=== PATIENT | female | born 1950 | race Caucasian/White ===

== ENCOUNTER → 2018-01-16 09:19 | Outpatient (CLI) | payer MEDICARE, OTHER, SELFPAY ==
[2018-01-16 10:39] LABS: Alanine Aminotransferase 48 IU/L (9-52); Albumin 4.2 g/dL (3.5-5.0); Albumin Globulin Ratio 1.5 (1.0-2.8); Alkaline Phosphatase 61 U/L (38-126); Aspartate Aminotransferase 28 IU/L (14-36); BUN Creatinine Ratio 25.7 (6-22); Bilirubin Total 0.6 mg/dL (0.2-1.3); Calcium 9.4 mg/dL (8.4-10.2); Estimated Glomerular Filt Rate > 60.0 mL/min (>60); Globulin 2.8 g/dL (1.7-4.1); Glucose 138 mg/dL (80-110); HEMOLYSIS < 15 (0-50); Potassium 4.4 mmol/L (3.4-5.1); Sodium 142 mmol/L (137-145)
[2018-01-16 10:41] LABS: Microalbumin Urine Random 1.2 mg/dL (0-1.6)
[2018-01-16 10:43] LABS: Digoxin 0.8 ng/mL (0.8-2.0)
[2018-01-16 11:06] LABS: Thyroid Stimulating Hormone 0.09 uIU/mL (0.47-4.68)
== END ==
PROVIDERS: PCP Internal Medicine; Visit Provider Internal Medicine
DX: E11.9 Type 2 diabetes mellitus without complications (principal); I48.0 Paroxysmal atrial fibrillation; E78.00 Pure hypercholesterolemia, unspecified; E03.9 Hypothyroidism, unspecified
CPT/HCPCS: 36415; 80053; 80162; 82043; 82570; 83036; 84443

== ENCOUNTER → 2018-05-17 09:58 | Outpatient (CLI) | payer MEDICARE, OTHER, SELFPAY ==
[2018-05-17 11:14] LABS: BUN Creatinine Ratio 31.3 (6-22); Blood Urea Nitrogen 25 mg/dL (7-17); Calcium 10.1 mg/dL (8.4-10.2); Carbon Dioxide 30 mmol/L (22-32); Chloride 102 mmol/L (98-107); Estimated Glomerular Filt Rate > 60.0 mL/min (>60); Glucose 129 mg/dL (80-110); HEMOLYSIS < 15 (0-50); Potassium 4.7 mmol/L (3.4-5.1); Sodium 143 mmol/L (137-145)
[2018-05-17 11:47] LABS: Thyroid Stimulating Hormone 0.21 uIU/mL (0.47-4.68)
== END ==
PROVIDERS: PCP Internal Medicine; Visit Provider Student in an Organized Health Care Education/Training Program
DX: E11.9 Type 2 diabetes mellitus without complications (principal); E03.9 Hypothyroidism, unspecified
CPT/HCPCS: 36415; 80048; 83036; 84443

== ENCOUNTER → 2018-05-24 11:53 | Outpatient (CLI) | payer MEDICARE, OTHER, SELFPAY ==
[2018-05-24 12:01] LABS: RBC Urine None Seen (0-5/HPF)
[2018-05-24 12:13] LABS: Appearance Urine UA CLEAR; Bilirubin Urine UA NEGATIVE (NEGATIVE); Color Urine UA YELLOW; Glucose Urine UA 3+ g/dL (Normal); Ketones Urine UA NEGATIVE (NEGATIVE); Leukocyte Esterase Urine UA TRACE (NEGATIVE); Nitrite Urine UA Negative (Negative); Occult Blood Urine UA TRACE-INTACT (Negative); Protein Urine UA NEGATIVE (Negative); Specific Gravity Urine UA 1.015 (1.000-1.035); Urobilinogen Urine UA 0.2 E.U./dL (0.2)
[2018-05-24 14:52] LABS: Bacteria Urine Few (2-10); Culture Indicated Urine Specimen Cultured; Squamous Epithelial Cell Urine 0-1 /HPF; WBC Urine 5-10/HPF (0-5/HPF)
== END ==
PROVIDERS: PCP Internal Medicine; Visit Provider Family Medicine
DX: R30.0 Dysuria (principal)
CPT/HCPCS: 81001; 87077; 87086; 87186

== ENCOUNTER → 2018-06-23 11:09 | Outpatient (CLI) | payer MEDICARE, OTHER, SELFPAY ==
[2018-06-23 11:20] LABS: Bacteria Urine None Seen; RBC Urine None Seen (0-5/HPF); WBC Urine None Seen (0-5/HPF)
[2018-06-23 12:10] LABS: Appearance Urine UA CLEAR; Bilirubin Urine UA NEGATIVE (NEGATIVE); Color Urine UA YELLOW; Glucose Urine UA 3+ g/dL (Normal); Ketones Urine UA NEGATIVE (NEGATIVE); Leukocyte Esterase Urine UA NEGATIVE (NEGATIVE); Nitrite Urine UA NEGATIVE (Negative); Occult Blood Urine UA NEGATIVE (Negative); Protein Urine UA NEGATIVE (Negative); Specific Gravity Urine UA 1.015 (1.000-1.035); Urobilinogen Urine UA 0.2 E.U./dL (0.2)
[2018-06-23 12:16] LABS: Culture Indicated Urine Cult Not Indicated; Urine Comments Microscopic Normal
== END ==
PROVIDERS: PCP Internal Medicine; Visit Provider Family Medicine
DX: R30.0 Dysuria (principal)
CPT/HCPCS: 81001

== ENCOUNTER → 2018-07-11 10:02 | Outpatient (CLI) | payer MEDICARE, OTHER, SELFPAY | PROVIDERS: PCP Internal Medicine; Visit Provider Internal Medicine | DX: Z78.0 Asymptomatic menopausal state (principal); E07.9 Disorder of thyroid, unspecified; E11.9 Type 2 diabetes mellitus without complications; Z82.62 Family history of osteoporosis | CPT/HCPCS: 77080 ==

== ENCOUNTER 2018-08-23 07:40 | Emergency (ER) | payer MEDICARE, OTHER, SELFPAY ==
[2018-08-23 07:40] VITALS: BP 164/64; PULSE 73; RESP 14; TEMP 36.6; O2SAT 100
--- NOTE | 2018-08-23 07:44 | ED.ABDPAIN ---
HPI - Abdominal Pain General Chief Complaint: Abdominal Pain Stated Complaint: nausea left side pain x1 day Time Seen by Provider: 08/23/18 07:42 Source: patient Mode of arrival: ambulatory Limitations: no limitations History of Present Illness HPI narrative: 67-year-old female here for evaluation of left-sided abdominal pain. Patient states that it started sometime within the past 12 hr. Has had some significant nausea but no vomiting. States she had 4 bowel movements yesterday and 1 or 2 this morning. They were nonbloody. Non black appearing. Did not change her abdominal pain. Is on daily Macrobid for prevention of chronic urinary tract infections. She states she is not having any urine symptoms currently. No vaginal bleeding or vaginal discharge. No prior abdominal surgeries. Related Data Home Medications Medication Instructions Recorded Confirmed ASPIRIN (#ASPIR 81) 162 mg PO QDAY #0 03/25/12 08/04/18 CA PANTOTHENATE/FOLIC ACID/VIT 1 tab PO QDAY #0 03/25/12 08/04/18 (MULTIVITAMIN) Fish Oil (#FISH OIL) 1 iu PO Q DAY #0 03/25/12 08/04/18 LEVOTHYROXINE SODIUM (SYNTHROID) 0.125 mg PO QDAY #0 03/25/12 08/04/18 TROSPIUM CHLORIDE (SANCTURA~) 60 mg PO QDAY #0 03/25/12 08/04/18 WHEAT DEXTRIN (#BENEFIBER) 2 tsp PO BID #0 03/25/12 08/04/18 [VITAMIN D] Q DAY #0 03/25/12 08/04/18 [VITAMIN E] Q DAY #0 03/25/12 08/04/18 digoxin [Lanoxin] 0.25 mg PO QDAY #0 03/25/12 08/04/18 metformin [Glucophage] 500 mg PO TIDCC #0 03/25/12 08/04/18 metoprolol succinate [Toprol XL] 50 mg PO QDAY #0 03/25/12 08/04/18 simvastatin 20 mg PO HS #0 03/25/12 spironolactone 12.5 mg PO QDAY #0 03/25/12 08/04/18 [CMP BIEST/PROG/TEST] #0 11/11/17 08/04/18 Previous Rx's Medication Instructions Recorded estradiol 2 mg (7.5 mcg/24 hour) 1 vaginalrin VAG Q 3 MONTHS #1 08/04/18 vaginal ring vaginalrin nitrofurantoin macrocrystal 50 mg 50 mg PO BEDTIME #90 cap 08/04/18 capsule [BIEST1%PRO7.5%TEST2%] See Label Instructions .ROUTE 08/22/18 .COMPLEX #60 gram hydrocodone-acetaminophen [[place]] 1 tab PO Q4-6H PRN #7 tab 08/23/18 ondansetron 4 mg PO Q6-8H PRN #7 tab 08/23/18 Allergies Allergy/AdvReac Type Severity Reaction Status Date / Time No Known Drug Allergies Allergy Unverified 08/04/18 08:49 Review of Systems Constitutional Denies fever(s) and Denies headache(s) ENT Ears, Nose, Mouth, and Throat: Denies headache(s) Cardiovascular Denies chest pain and Denies dyspnea Respiratory Denies dyspnea Gastrointestinal Gastrointestinal: Reports abdominal pain, Denies melena, Denies change in stool character, Denies constipation, Denies diarrhea, Reports nausea and Denies vomiting Genitourinary Denies dysuria and Denies vaginal discharge Musculoskeletal Denies myalgias and Denies arthralgias Integumentary/Breasts Denies rash Neurologic Denies headache(s) Hematologic/Lymphatic Denies easy bleeding and Denies easy bruising [facility] Social History Smoking Status: Never smoker Exam Initial Vital Signs Initial Vital Signs: Vital Signs Temperature 98 F 08/23/18 07:40 Pulse Rate 73 08/23/18 07:40 Respiratory Rate 14 08/23/18 07:40 Blood Pressure 164/64 H 08/23/18 07:40 Pulse Oximetry 100 08/23/18 07:40 Const General: cooperative, healthy appearing, well developed, well groomed and No acute distress Orientation: alert, awake and oriented x3 HENMT Head: normal to inspection and normocephalic Resp Effort & Inspection: normal respiratory effort Auscultation: clear to auscultation bilaterally Cardio Rate: regular rate Rhythm: regular rhythm Pulses: radial pulses present GI Inspection: non-distended Palpation: soft, No firm, No guarding, No rigid and tender (Left side abdomen) Back/Spine/Pelvis Back: No CVA tenderness Skin Lesions: no lesions Rashes: no rashes Neuro General: alert, awake and oriented x3 Extrem General: normal to inspection and capillary refill normal Psych Appearance: grossly normal and well kempt Course Orders Ordered: ED Orders 08/23/18 07:45 Urine Microscopic Stat 08/23/18 07:57 CT abdomen pelvis w con Stat 08/23/18 08:00 Complete Blood Count AUTO DIFF Stat Comprehensive Metabolic Panel Stat Lipase Stat Discontinued Medications Sodium Chloride (Normal Saline 0.9%) 1,000 mls @ 1,000 mls/hr IV BOLUS ONE Stop: 08/23/18 08:55 Last Admin: 08/23/18 08:17 Dose: 1,000 mls/hr Ondansetron HCl (Zofran) 4 mg IV NOW ONE Stop: 08/23/18 07:57 Last Admin: 08/23/18 08:17 Dose: 4 mg Vital Signs - 8 hr 08/23/18 07:40 08/23/18 08:48 Temperature 98 F Pulse Rate 73 72 Respiratory Rate 14 16 Blood Pressure 164/64 H Blood Pressure [Right Arm] 123/62 Pulse Oximetry 100 100 MDM - Abdominal Pain Lab Data Attestation: I reviewed the patient's lab results. Result diagrams: 08/23/18 08:00 08/23/18 08:00 Lab Results 08/23/18 08/23/18 08/23/18 Range/Units 07:45 08:00 08:00 WBC 12.1 H (4.5-11.0) X10^3/uL RBC 4.44 (4.0-5.2) X10^6/uL Hgb 13.7 (12.0-16.0) g/dL Hct 41.3 (36-46) % MCV 93.0 (80-100) fL MCH 30.8 (26-34) PG MCHC 33.1 (30-36) % RDW 13.5 (11.6-14.8) % Plt Count 258 (150-400) X10^3/uL Neut % (Auto) 79.1 H (50-75) % Lymph % (Auto) 13.5 L (25-40) % [place] % (Auto) 5.6 (3-14) % Eos % (Auto) 1.3 L (2-4) % Baso % (Auto) 0.5 (0-2) % Neut # (Auto) 9600 H (7650-7940) /uL Sodium 141 (137-145) mmol/L Potassium 4.5 (3.4-5.1) mmol/L Chloride 104 (98-107) mmol/L Carbon Dioxide 27 (22-32) mmol/L BUN 23 H (7-17) mg/dL Creatinine 0.70 (0.52-1.04) mg/dL Estimated GFR > 60.0 (>60) mL/min BUN/Creatinine Ratio 32.9 H (6-22) Glucose 187 H (80-110) mg/dL Calcium 9.6 (8.4-10.2) mg/dL Total Bilirubin 0.5 (0.2-1.3) mg/dL AST 26 (14-36) IU/L ALT 35 (9-52) IU/L Alkaline Phosphatase 71 (38-126) U/L Total Protein 7.0 (6.3-8.2) g/dL Albumin 4.3 (3.5-5.0) g/dL Globulin 2.7 (1.7-4.1) g/dL Albumin/Globulin Ratio 1.6 (1.0-2.8) Lipase (23-300) U/L Urine RBC 10-30/hpf H (0-5/HPF) Urine WBC 1-5/hpf (0-5/HPF) Ur Squamous Epith Cells 0-1 /hpf Urine Bacteria None seen (None) Ur Culture Indicated? Cult not indicated Micro UA Comment Not Reportable 08/23/18 Range/Units 08:00 WBC (4.5-11.0) X10^3/uL RBC (4.0-5.2) X10^6/uL Hgb (12.0-16.0) g/dL Hct (36-46) % MCV (80-100) fL MCH (26-34) PG MCHC (30-36) % RDW (11.6-14.8) % Plt Count (150-400) X10^3/uL Neut % (Auto) (50-75) % Lymph % (Auto) (25-40) % [place] % (Auto) (3-14) % Eos % (Auto) (2-4) % Baso % (Auto) (0-2) % Neut # (Auto) (5546-7671) /uL Sodium (137-145) mmol/L Potassium (3.4-5.1) mmol/L Chloride (98-107) mmol/L Carbon Dioxide (22-32) mmol/L BUN (7-17) mg/dL Creatinine (0.52-1.04) mg/dL Estimated GFR (>60) mL/min BUN/Creatinine Ratio (6-22) Glucose (80-110) mg/dL Calcium (8.4-10.2) mg/dL Total Bilirubin (0.2-1.3) mg/dL AST (14-36) IU/L ALT (9-52) IU/L Alkaline Phosphatase (38-126) U/L Total Protein (6.3-8.2) g/dL Albumin (3.5-5.0) g/dL Globulin (1.7-4.1) g/dL Albumin/Globulin Ratio (1.0-2.8) Lipase 65 (23-300) U/L Urine RBC (0-5/HPF) Urine WBC (0-5/HPF) Ur Squamous Epith Cells Urine Bacteria (None) Ur Culture Indicated? Micro UA Comment Point of care testing: Urine Dip Bedside Urine Glucose 1000 mg/dl Bedside Urine Bilirubin - Negative Bedside Urine Ketone - Negative Urine Specific [place] 1.025 Bedside Urine Occult Blood ++ Bedside Urine pH 6.0 Bedside Urine Protein +/- 15 Bedside Urine Urobilinogen - Negative Bedside Urine Nitrite - Negative Bedside Urine Leukocytes - Negative Esterase Imaging Data CT scan - abdomen: Radiologist's impression: PROCEDURE: CT ABDOMEN PELVIS W CON INDICATIONS: Left-sided abdominal pain TECHNIQUE: After the administration of intravenous contrast, 5 mm thick sections acquired from the diaphragm to the symphysis. 5 mm coronal and sagittal reformats were acquired. For radiation dose reduction, the following was used: automated exposure control, adjustment of mA and/or kV according to patient size. COMPARISON: None. FINDINGS: Image quality: Excellent. ABDOMEN: Lung bases: Lung bases are clear. Heart size is normal. Solid organs: Liver is normal in size and enhancement. Gallbladder appears normal. Biliary system is non dilated. Pancreas enhances normally. Spleen is normal in size and enhancement. No adrenal nodules. Kidneys demonstrate normal size and enhancement, without right-sided hydronephrosis. There is left-sided hydronephrosis secondary to a 8 x 10 mm calculus at the ureteropelvic junction with radiodensity 1207 Hounsfield units. Peritoneum and bowel: Bowel loops demonstrate normal wall thickness and caliber. No free fluid or air. Nodes and vessels: No retroperitoneal or mesenteric adenopathy by size criteria. Aorta and inferior vena cava are normal in size. Miscellaneous: No ventral hernias. PELVIS: Genitourinary: Bladder wall thickness is normal. Pessary is incidentally noted at the low midline of the pelvis. Miscellaneous: No inguinal hernias or adenopathy. Bones: No suspicious bony lesions. No vertebral body compression fractures. IMPRESSION: Mild hypoperfusion to the cortex of the left kidney is present secondary to a large dense calculus impacted at the ureteropelvic junction producing moderate left hydronephrosis. The calculus measures 8 x 10 mm, and measures slightly over 1200 Hounsfield units in radiodensity. Pessary in place. Dictated by: Uche Laws M.D. on 08/23/2018 at 8:44 MDM Narrative Medical decision making narrative: Patient is nontoxic appearing. Has a benign abdominal exam. Does show a 1 cm left-sided ureteral stone at the UPJ. Creatinine is unremarkable. No signs of urinary tract infection. She is currently on a daily Macrobid for prevention of urinary tract infections. I do not feel that a emergent consult to Urology as needed despite the size of the stone. Send home with a prescription for pain medication and also nausea medication. Informed her that if her symptoms worsen that she needs return to the emergency department for further evaluation. Patient expressed understanding and agreement this plan. Discharge Plan Departure Patient Disposition: Home Clinical Impression: Renal colic on left side Instructions: DI for Kidney Stones Activity Restrictions/Additional Instructions: I recommend you take the medications that you were given a prescription for as needed. Return to the emergency department for any new symptoms, worsening pain, fevers, inability to urinate, or any other concerning symptoms. Call your primary care doctor for a follow-up. Prescriptions: New hydrocodone-acetaminophen [[place]] 5-325 mg tablet 1 tab PO Q4-6H PRN (Reason: pain) Qty: 7 RF: 0 ondansetron 4 mg tablet,disintegrating 4 mg PO Q6-8H PRN (Reason: nausea and vomiting) Qty: 7 RF: 0 No Action ASPIRIN (#ASPIR 81) 162 mg PO QDAY Qty: 0 RF: 0 digoxin [Lanoxin] 250 MCG tablet 0.25 mg PO QDAY Qty: 0 RF: 0 LEVOTHYROXINE SODIUM (SYNTHROID) 0.125 mg PO QDAY Qty: 0 RF: 0 metformin [Glucophage] 500 MG tablet 500 mg PO TIDCC Qty: 0 RF: 0 TROSPIUM CHLORIDE (SANCTURA~) 60 mg PO QDAY Qty: 0 RF: 0 spironolactone 25 MG tablet 12.5 mg PO QDAY Qty: 0 RF: 0 simvastatin 20 MG tablet 20 mg PO HS Qty: 0 RF: 0 metoprolol succinate [Toprol XL] 50 MG tablet extended release 24 hr 50 mg PO QDAY Qty: 0 RF: 0 CA PANTOTHENATE/FOLIC ACID/VIT (MULTIVITAMIN) 1 tab PO QDAY Qty: 0 RF: 0 Fish Oil (#FISH OIL) 1 iu PO Q DAY Qty: 0 RF: 0 WHEAT DEXTRIN (#BENEFIBER) 2 tsp PO BID Qty: 0 RF: 0 [VITAMIN D] Q DAY Qty: 0 RF: 0 [VITAMIN E] Q DAY Qty: 0 RF: 0 [CMP BIEST/PROG/TEST] Qty: 0 RF: 0 [BIEST1%PRO7.5%TEST2%] See Label Instructions .ROUTE .COMPLEX Qty: 60 RF: 2 estradiol [Estring] 2 mg (7.5 mcg /24 hour) ring 1 vaginalrin VAG Q 3 MONTHS Qty: 1 RF: 6 nitrofurantoin macrocrystal 50 mg capsule 50 mg PO BEDTIME Qty: 90 RF: 0
[2018-08-23 07:57] LABS: Bacteria Urine None Seen
--- NOTE | 2018-08-23 07:57 | DI.CT.S_ITS ---
PROCEDURE: CT ABDOMEN PELVIS W CON INDICATIONS: Left-sided abdominal pain TECHNIQUE: After the administration of intravenous contrast, 5 mm thick sections acquired from the diaphragm to the symphysis. 5 mm coronal and sagittal reformats were acquired. For radiation dose reduction, the following was used: automated exposure control, adjustment of mA and/or kV according to patient size. COMPARISON: None. FINDINGS: Image quality: Excellent. ABDOMEN: Lung bases: Lung bases are clear. Heart size is normal. Solid organs: Liver is normal in size and enhancement. Gallbladder appears normal. Biliary system is non dilated. Pancreas enhances normally. Spleen is normal in size and enhancement. No adrenal nodules. Kidneys demonstrate normal size and enhancement, without right-sided hydronephrosis. There is left-sided hydronephrosis secondary to a 8 x 10 mm calculus at the ureteropelvic junction with radiodensity 1207 Hounsfield units. Peritoneum and bowel: Bowel loops demonstrate normal wall thickness and caliber. No free fluid or air. Nodes and vessels: No retroperitoneal or mesenteric adenopathy by size criteria. Aorta and inferior vena cava are normal in size. Miscellaneous: No ventral hernias. PELVIS: Genitourinary: Bladder wall thickness is normal. Pessary is incidentally noted at the low midline of the pelvis. Miscellaneous: No inguinal hernias or adenopathy. Bones: No suspicious bony lesions. No vertebral body compression fractures. IMPRESSION: Mild hypoperfusion to the cortex of the left kidney is present secondary to a large dense calculus impacted at the ureteropelvic junction producing moderate left hydronephrosis. The calculus measures 8 x 10 mm, and measures slightly over 1200 Hounsfield units in radiodensity. Pessary in place. Dictated by: Uche Laws M.D. on 08/23/2018 at 8:44 Approved by: Uche Laws M.D. on 08/23/2018 at 8:47
[2018-08-23 08:07] LABS: Add Manual Diff / Slide Review NO; Basophils Percent Auto 0.5 % (0-2); Eosinophils Percent Auto 1.3 % (2-4); Hematocrit 41.3 % (36-46); Hemoglobin 13.7 g/dL (12.0-16.0); Lymphocytes Percent Auto 13.5 % (25-40); Mean Corpuscular HGB Conc 33.1 % (30-36); Mean Corpuscular Hemoglobin 30.8 PG (26-34); Monocytes Percent Auto 5.6 % (3-14); Neutrophils Absolute Auto 9600 /uL (1500-7000); Neutrophils Percent Auto 79.1 % (50-75); Platelet Count 258 X10^3/uL (150-400); Red Blood Cell Count 4.44 X10^6/uL (4.0-5.2); Red Cell Distribution Width 13.5 % (11.6-14.8); White Blood Cell Count 12.1 X10^3/uL (4.5-11.0)
[2018-08-23 08:14] LABS: RBC Urine 10-30/HPF (0-5/HPF); Squamous Epithelial Cell Urine 0-1 /HPF; WBC Urine 1-5/HPF (0-5/HPF)
[2018-08-23 08:15] LABS: Culture Indicated Urine Cult Not Indicated
[2018-08-23 08:16] LABS: Alanine Aminotransferase 35 IU/L (9-52); Albumin 4.3 g/dL (3.5-5.0); Albumin Globulin Ratio 1.6 (1.0-2.8); Alkaline Phosphatase 71 U/L (38-126); Aspartate Aminotransferase 26 IU/L (14-36); BUN Creatinine Ratio 32.9 (6-22); Bilirubin Total 0.5 mg/dL (0.2-1.3); Blood Urea Nitrogen 23 mg/dL (7-17); Calcium 9.6 mg/dL (8.4-10.2); Carbon Dioxide 27 mmol/L (22-32); Chloride 104 mmol/L (98-107); Estimated Glomerular Filt Rate > 60.0 mL/min (>60); Globulin 2.7 g/dL (1.7-4.1); Glucose 187 mg/dL (80-110); HEMOLYSIS < 15 (0-50); Lipase 65 U/L (23-300); Potassium 4.5 mmol/L (3.4-5.1); Sodium 141 mmol/L (137-145)
[2018-08-23] MEDS: SODIUM CHLORIDE 0.9% 1,000 ML 1000 ML IV (08:17)
[2018-08-23] MEDS: ONDANSETRON 4 MG/2 ML INJ IV (08:17)
[2018-08-23 08:48] VITALS: BP 123/62; PULSE 72; RESP 16; O2SAT 100
[2018-08-23 09:55] VITALS: BP 123/62; PULSE 83; RESP 16; TEMP 36.8; O2SAT 99
--- NOTE | 2018-08-23 10:08 | PC.NURSE ---
filters/cup given to strain urine
== END 2018-08-23 10:12 | disposition home or self-care (01) ==
PROVIDERS: Emergency Provider Emergency Medicine; PCP Internal Medicine
DX: N23 Unspecified renal colic (principal)
CPT/HCPCS: 36591; 74177; 80053; 81003; 81015; 83690; 85025; 96361; 96374; 99283; 99285; J2405

== ENCOUNTER → 2018-09-08 09:06 | Outpatient (CLI) | payer MEDICARE, OTHER, SELFPAY ==
[2018-09-08 10:21] LABS: Hemoglobin A1C% w Est Avg Glu 7.1 % (4.0-6.0)
[2018-09-08 10:24] LABS: Alanine Aminotransferase 40 IU/L (9-52); Albumin 4.5 g/dL (3.5-5.0); Albumin Globulin Ratio 1.5 (1.0-2.8); Alkaline Phosphatase 69 U/L (38-126); Aspartate Aminotransferase 33 IU/L (14-36); Bilirubin Total 0.7 mg/dL (0.2-1.3); Blood Urea Nitrogen 21 mg/dL (7-17); Calcium 9.6 mg/dL (8.4-10.2); Carbon Dioxide 29 mmol/L (22-32); Chloride 101 mmol/L (98-107); Cholesterol 150 mg/dL (140-199); Estimated Glomerular Filt Rate > 60.0 mL/min (>60); Glucose 134 mg/dL (80-110); HDL Cholesterol 48 mg/dL (40-60); HEMOLYSIS < 15 (0-50); LDL Cholesterol Calculated 87 mg/dL (<100); Potassium 4.7 mmol/L (3.4-5.1); Sodium 139 mmol/L (137-145); Total Protein 7.5 g/dL (6.3-8.2); Triglycerides 74 mg/dL (35-150)
[2018-09-08 11:13] LABS: Free T3, Triiodothyronine Free 3.09 pg/mL (2.77-5.27); Free T4, Direct Thyroxine 1.73 ng/dL (0.78-2.19)
[2018-09-08 11:27] LABS: Thyroid Stimulating Hormone 0.91 uIU/mL (0.47-4.68)
[2018-09-08 11:57] LABS: Hep C Virus Ab w/Reflex Quant NEGATIVE s/c (NEGATIVE)
== END ==
PROVIDERS: PCP Internal Medicine; Visit Provider Internal Medicine
DX: Z00.00 Encounter for general adult medical examination without abnormal findings (principal); E11.9 Type 2 diabetes mellitus without complications; E03.9 Hypothyroidism, unspecified
CPT/HCPCS: 36415; 80053; 80061; 83036; 84439; 84443; 84481; 86803

== ENCOUNTER → 2018-09-22 11:34 | Outpatient (CLI) | payer MEDICARE, OTHER, SELFPAY ==
[2018-09-22 11:55] LABS: RBC Urine None Seen (0-5/HPF)
[2018-09-22 13:29] LABS: BUN Creatinine Ratio 32.5 (6-22); Blood Urea Nitrogen 26 mg/dL (7-17); Calcium 9.9 mg/dL (8.4-10.2); Carbon Dioxide 29 mmol/L (22-32); Chloride 101 mmol/L (98-107); Estimated Glomerular Filt Rate > 60.0 mL/min (>60); Glucose 125 mg/dL (80-110); HEMOLYSIS < 15 (0-50); Potassium 4.7 mmol/L (3.4-5.1); Sodium 138 mmol/L (137-145)
[2018-09-22 14:20] LABS: Appearance Urine UA CLEAR; Bilirubin Urine UA NEGATIVE (NEGATIVE); Color Urine UA YELLOW; Glucose Urine UA 2+ g/dL (Negative); Ketones Urine UA NEGATIVE (NEGATIVE); Leukocyte Esterase Urine UA TRACE (NEGATIVE); Nitrite Urine UA NEGATIVE (Negative); Occult Blood Urine UA NEGATIVE (Negative); Protein Urine UA NEGATIVE (Negative); Urobilinogen Urine UA 0.2 E.U./dL (0.2)
[2018-09-22 14:50] LABS: Bacteria Urine Many (>30); Culture Indicated Urine Specimen Cultured; WBC Urine 5-10/HPF (0-5/HPF)
== END ==
PROVIDERS: Family Provider Internal Medicine; PCP Internal Medicine; Visit Provider Urology
DX: N20.0 Calculus of kidney (principal)
CPT/HCPCS: 36415; 80048; 81001; 87077; 87086; 87186

== ENCOUNTER → 2018-10-17 15:17 | Outpatient (CLI) | payer MEDICARE, OTHER, SELFPAY ==
--- NOTE | 2018-10-17 | DI.MG.S_ITS ---
BILATERAL DIGITAL SCREENING MAMMOGRAM 3D/2D WITH CAD: 10/17/2018 CLINICAL: Routine screening. Family history of breast cancer. Comparison is made to exams dated: 10/04/2017 mammogram, 08/30/2016 mammogram, and 07/04/2015 mammogram - [facility]. There are scattered fibroglandular elements in both breasts. Current study was also evaluated with a Computer Aided Detection (CAD) system. There is a benign biopsy clip in the right breast. No significant masses, calcifications, or other findings are seen in either breast. There has been no significant interval change. IMPRESSION: NEGATIVE There is no mammographic evidence of malignancy. A 1 year screening mammogram is recommended. This exam was interpreted at Station ID: [id number]. NOTE: For mammograms, a report in lay terms will be sent to the patient. Approximately 15% of breast malignancies will not be visualized mammographically. In the management of a palpable breast mass, a negative mammogram must not discourage biopsy of a clinically suspicious lesion. Electronically Signed By: Aline key/germán:10/17/2018 16:21:24 copy to: Juan Ramon Price letter sent: Normal Exam ACR BI-RADS Category 1: Negative [id number]
== END ==
PROVIDERS: Family Provider Internal Medicine; PCP Internal Medicine; Visit Provider Internal Medicine
DX: Z12.31 Encounter for screening mammogram for malignant neoplasm of breast (principal); Z80.3 Family history of malignant neoplasm of breast
CPT/HCPCS: 77063; 77067

== ENCOUNTER → 2018-12-03 15:17 | Outpatient (CLI) | payer MEDICARE, OTHER, SELFPAY ==
[2018-12-03 17:43] LABS: BUN Creatinine Ratio 35.7 (6-22); Blood Urea Nitrogen 25 mg/dL (7-17); Carbon Dioxide 26 mmol/L (22-32); Chloride 103 mmol/L (98-107); Estimated Glomerular Filt Rate > 60.0 mL/min (>60); Glucose 156 mg/dL (80-110); HEMOLYSIS < 15 (0-50); Potassium 4.5 mmol/L (3.4-5.1); Sodium 139 mmol/L (137-145); Uric Acid 5.2 mg/dL (2.5-6.2)
[2018-12-05 14:35] LABS: Parathyroid Hormone Int 23 pg/mL (14-64)
== END ==
PROVIDERS: Family Provider Internal Medicine; PCP Internal Medicine; Visit Provider Urology
DX: N20.0 Calculus of kidney (principal)
CPT/HCPCS: 36415; 80048; 83970; 84550

== ENCOUNTER → 2019-08-04 08:54 | Outpatient (CLI) | payer MEDICARE, OTHER, SELFPAY ==
[2019-08-04 09:37] LABS: Hemoglobin A1C% w Est Avg Glu 7.2 % (4.0-6.0)
[2019-08-04 10:05] LABS: Alanine Aminotransferase 27 IU/L (<35); Albumin 4.1 g/dL (3.5-5.0); Albumin Globulin Ratio 1.6 (1.0-2.8); Alkaline Phosphatase 59 U/L (38-126); Aspartate Aminotransferase 23 IU/L (14-36); BUN Creatinine Ratio 32.9 (6-22); Bilirubin Total 0.5 mg/dL (0.2-1.3); Blood Urea Nitrogen 23 mg/dL (7-17); Calcium 9.8 mg/dL (8.4-10.2); Carbon Dioxide 31 mmol/L (22-32); Chloride 101 mmol/L (98-107); Cholesterol 144 mg/dL (140-199); Estimated Glomerular Filt Rate > 60.0 mL/min (>60); Globulin 2.5 g/dL (1.7-4.1); Glucose 134 mg/dL (80-110); HDL Cholesterol 49 mg/dL (40-60); HEMOLYSIS < 15 (0-50); LDL Cholesterol Calculated 83 mg/dL (<100); Potassium 4.7 mmol/L (3.4-5.1); Sodium 138 mmol/L (137-145); Total Protein 6.6 g/dL (6.3-8.2); Triglycerides 62 mg/dL (35-150)
[2019-08-04 10:37] LABS: TSH w/ Reflex to FT4 1.05 uIU/mL (0.47-4.68)
== END ==
PROVIDERS: PCP Internal Medicine; Visit Provider Internal Medicine
DX: E11.9 Type 2 diabetes mellitus without complications (principal); I48.0 Paroxysmal atrial fibrillation; E78.00 Pure hypercholesterolemia, unspecified; E03.9 Hypothyroidism, unspecified
CPT/HCPCS: 36415; 80053; 80061; 83036; 84443

== ENCOUNTER 2019-09-07 10:20 | Emergency (ER) | payer MEDICARE, OTHER, SELFPAY ==
--- NOTE | 2019-09-07 10:56 | DI.RAD.S_ITS ---
PROCEDURE: XR ANKLE RT MIN 3V INDICATIONS: injury/swelling/pain TECHNIQUE: 3 views of the ankle were acquired. COMPARISON: None. FINDINGS: Bones: Oblique fracture through the distal fibula at the level of the syndesmosis. There is mild lateral displacement of the distal fracture fragment. No dislocations. There is widening of the lateral aspect of the ankle mortise. No suspicious bony lesions. Soft tissues: Small tibiotalar joint effusion. Achilles tendon appears normal. IMPRESSION: Oblique fracture through the distal fibula at the level of the syndesmosis. Widening of the lateral aspect of the ankle mortise. Dictated by: David Franco M.D. on 09/07/2019 at 11:12 Approved by: David Franco M.D. on 09/07/2019 at 11:17
[2019-09-07 10:58] VITALS: BP 138/85; PULSE 74; RESP 13; TEMP 36.1; O2SAT 98
--- NOTE | 2019-09-07 11:20 | ED.LOWEXIN ---
HPI - Extremity Injury (Lower) <Arelis Bhatia, AUDIT MANAGER-BC - Last Filed: 09/07/19 13:55> General Chief Complaint: Extremity Injury, Lower Stated Complaint: slipped on ice,right ankle pain Time Seen by Provider: 09/07/19 11:06 Source: patient Mode of arrival: Wheelchair Limitations: no limitations History of Present Illness HPI Narrative: The patient is a 60-year-old female nonsmoker with history of type 2 diabetes who presents with a chief complaint of right ankle pain after she slipped on the ice today. She states that she slipped on black ice, rolled her right ankle and, has pain on the outside of her right ankle. She denies any numbness or tingling. She has applied ice only when she got to the emergency department. She complains of swelling. She denies any previous injuries to that area. She denies any other injuries from her fall today. She was able to bear weight after her fall today. Related Data Home Medications Medication Instructions Recorded Confirmed Fish Oil (#FISH OIL) 1 iu PO Q DAY #0 03/25/12 08/04/18 WHEAT DEXTRIN (#BENEFIBER) 2 tsp PO BID #0 03/25/12 08/04/18 [VITAMIN D] Q DAY #0 03/25/12 08/04/18 [VITAMIN E] Q DAY #0 03/25/12 08/04/18 aspirin 162 mg PO DAILY #0 03/25/12 08/04/18 metoprolol succinate [Toprol XL] 50 mg PO DAILY #0 03/25/12 09/07/19 multivitamin 1 tab PO DAILY #0 03/25/12 08/04/18 simvastatin 20 mg PO BEDTIME #0 03/25/12 09/07/19 spironolactone 12.5 mg PO DAILY #0 03/25/12 09/07/19 trospium 60 mg PO QAM #0 03/25/12 09/07/19 canagliflozin [Invokana] 100 mg PO DAILY 09/07/19 09/07/19 digoxin 125 mcg PO DAILY 09/07/19 09/07/19 levothyroxine [Synthroid] 100 mcg PO DAILY 09/07/19 09/07/19 metformin 1,000 mg PO BID 09/07/19 09/07/19 Previous Rx's Medication Instructions Recorded estradiol 1 vaginalrin VAG Q 3 MONTHS #1 08/04/18 vaginalrin nitrofurantoin macrocrystal 50 mg 50 mg PO BEDTIME #90 cap 08/04/18 capsule CMP BIEST1%/PROG7.5%/TEST1% See Rx Instructions .ROUTE 03/17/19 .COMPLEX #60 gram acetaminophen-codeine 1 tab PO Q6H PRN #10 tab 09/07/19 Allergies Allergy/AdvReac Type Severity Reaction Status Date / Time No Known Drug Allergies Allergy Unverified 08/04/18 08:49 Review of Systems <ALBERTO Hughes - Last Filed: 09/07/19 13:55> Review of Systems Narrative: GENERAL: Denies chills, fatigue, malaise, fever, sweats. HEENT: Denies sinus pain, ear pain, sore throat, difficulty swallowing, dizziness. RESPIRATORY: Denies dyspnea, cough, wheezing, hemoptysis, sputum. CARDIOVASCULAR: Denies chest pain, palpitations, orthopnea, edema, GASTROINTESTINAL: Denies nausea, vomiting, abdominal pain, diarrhea, constipation, melena. : Denies dysuria, frequency, incontinence, hematuria, urinary retention. MUSCULOSKELETAL: See HPI SKIN: Denies rash, skin lesions, or other NEUROLOGIC: Denies weakness, headache, numbness, change in speech, confusion, seizures, incoordination. PSYCHIATRIC: No concerning psychosocial issues. 12 point review of systems is negative except for those stated above Patient History <ALBERTO Hughes - Last Filed: 09/07/19 13:55> Medical History Atrial fibrillation (Chronic) Diabetes mellitus (Chronic) Hyperlipidemia (Chronic) Social History Smoking Status: Never smoker Smoking Status: Never smoker Exam <ALBERTO Hughes - Last Filed: 09/07/19 13:55> Narrative Exam Narrative: GENERAL: This is a well-nourished, well-developed patient, in no acute distress HEAD: Atraumatic. Normocephalic. No temporal or scalp tenderness. EYES: Pupils equal round and reactive. Extraocular motions intact. No scleral icterus. No injection or drainage. ENT: Nose without bleeding, purulent drainage or septal hematoma. Throat without erythema, tonsillar hypertrophy or exudate. Uvula midline. Airway patent. NECK: Trachea midline. No JVD or lymphadenopathy. Supple, nontender, no meningeal signs. CARDIOVASCULAR: Regular rate and rhythm RESPIRATORY: No cough. No increased respiratory effort. No accessory muscle use. EXTREMITIES: Pain to palpation lateral aspect of right ankle, positive pedal pulses. Wiggling all toes. Capillary refill less than 2 seconds. Edema noted on lateral aspect of right ankle. Able to flex and extend right ankle. BACK: Nontender without deformity or crepitance. No flank tenderness. NEURO: AOx3. SKIN: Slight ecchymosis noted on lateral aspect of right ankle. No laceration or abrasions noted. Initial Vital Signs Initial Vital Signs: Vital Signs Temperature 97 F L 09/07/19 10:58 Pulse Rate 74 09/07/19 10:58 Respiratory Rate 13 09/07/19 10:58 Blood Pressure 138/85 09/07/19 10:58 Pulse Oximetry 98 09/07/19 10:58 <Lluvia Guevara DO - Last Filed: 09/08/19 07:03> Initial Vital Signs Initial Vital Signs: Vital Signs Temperature 97 F L 09/07/19 10:58 Pulse Rate 74 09/07/19 10:58 Respiratory Rate 09/07/19 10:58 Blood Pressure 138/85 09/07/19 10:58 Pulse Oximetry 98 09/07/19 10:58 Procedures <ALBERTO Hughes - Last Filed: 09/07/19 13:55> Orthopedic Splinting/Casting Injury #1: Side: right Lower Extremity Injury Location: ankle Lower Extremity Immobilizer: posterior splint and Agustin wrap Other Orthopedic Equipment: crutches Post splinting neuro exam: intact Post splinting vascular exam: intact Placed by: Nursing Scores <ALBERTO Hughes - Last Filed: 09/07/19 13:55> GCS Lucy coma scale eye opening: Spontaneous Lucy coma scale verbal response: Orientated Lucy coma scale motor response: Obey commands [place] coma scale total score: 15 Course <ALBERTO Hughes - Last Filed: 09/07/19 13:55> Orders Ordered: Discontinued Medications Acetaminophen/Codeine Phosphate (Tylenol #3) 1 tab PO NOW ONE Stop: 09/07/19 11:48 Last Admin: 09/07/19 11:59 Dose: 1 tab Documented by: ALEXANDRAONER Ondansetron HCl (Zofran Odt) 4 mg SL NOW ONE Stop: 09/07/19 11:48 Last Admin: 09/07/19 11:59 Dose: 4 mg Documented by: BTONER Vital Signs Vital signs: Vital Signs - 8 hr 09/07/19 10:58 09/07/19 13:41 Temperature 97 F L Pulse Rate 74 66 Respiratory Rate 13 16 Blood Pressure 138/85 124/74 Pulse Oximetry 98 <Lluvia Guevara DO - Last Filed: 09/08/19 07:03> Orders Ordered: Discontinued Medications Acetaminophen/Codeine Phosphate (Tylenol #3) 1 tab PO NOW ONE Stop: 09/07/19 11:48 Last Admin: 09/07/19 11:59 Dose: 1 tab Documented by: BTONER Ondansetron HCl (Zofran Odt) 4 mg SL NOW ONE Stop: 09/07/19 11:48 Last Admin: 09/07/19 11:59 Dose: 4 mg Documented by: BTONER Vital Signs Vital signs: Vital Signs - 8 hr 09/07/19 10:58 09/07/19 13:41 Temperature 97 F L Pulse Rate 74 66 Respiratory Rate 13 16 Blood Pressure 138/85 124/74 Pulse Oximetry 98 MDM - Extremity Injury (Lower) <ALBERTO Hughes - Last Filed: 09/07/19 13:55> Differential Diagnosis Differential diagnosis: Likely ankle sprain and strain, puncture wound of foot, fracture of toe and ankle fracture Imaging Data Extremity x-ray #1: Radiologist's Impression: [address] [address] XRay Report Signed Patient: Kiera Smith JMR#: [id number] : [id number]:[id number] Age/Sex: 68 / FDate of Service: 09/07/19 Loc: ED Accession Number: [id number] Procedure: XR ankle RT min 3V Ordering Provider: Lluvia Guevara D.O. PROCEDURE: XR ANKLE RT MIN 3V INDICATIONS: injury/swelling/pain TECHNIQUE: 3 views of the ankle were acquired. COMPARISON: None. FINDINGS: Bones: Oblique fracture through the distal fibula at the level of the syndesmosis. There is mild lateral displacement of the distal fracture fragment. No dislocations. There is widening of the lateral aspect of the ankle mortise. No suspicious bony lesions. Soft tissues: Small tibiotalar joint effusion. Achilles tendon appears normal. IMPRESSION: Oblique fracture through the distal fibula at the level of the syndesmosis. Widening of the lateral aspect of the ankle mortise. Dictated by: David Franco M.D. on 09/07/2019 at 11:12 Approved by: David Franco M.D. on 09/07/2019 at 11:17 MDM Narrative Medical decision making narrative: The patient is a 68-year-old female who presents after a fall with a chief complaint of right ankle pain. She has a distal fibular fracture. I spoke with Dr Ghosh from [facility] who viewed her x-rays, suggested posterior splint and crutches will nonweightbearing. Patient was given Tylenol 3 and states she does well without for pain. I sent her small prescription. She is neurovascular intact her stay in the emergency department. Discussed at length the importance of follow-up with primary care provider as well as Orthopedics. Discussed going back to the emergency department for any acute concerns. Patient and have no questions or concerns upon discharge and state understanding of return precautions as well as follow-up care Discharge Plan Departure Patient Disposition: Home Clinical Impression: Fracture of distal end of fibula Qualifiers: Encounter type: initial encounter Fracture type: closed Fracture morphology: unspecified fracture morphology Laterality: right Qualified Code(s): S82.831A - Other fracture of upper and lower end of right fibula, initial encounter for closed fracture Discharge Date/Time: 09/07/19 13:10 Instructions: DI for Ankle Fracture, How To Perform RICE (Rest, Ice, Compress, Elevate), How to Take Care of Your Splint Activity Restrictions/Additional Instructions: Today we found that you have a fracture through the bottom of your fibula You have been prescribed narcotic medications. I sent this prescription to [facility]. While on these medications you cannot drive or operate heavy machinery. Additionally you cannot sign legal documents or perform any duties such as this. Many people get constipated on narcotic medications so it would be advisable to consider getting when you sampler pickup your prescription. We have placed you in a splint and given crutches. Please remain nonweightbearing. Please use rest ice compression elevation. I spoke with Dr. Ghosh from [facility]. You are welcome to follow up with them. Please come back to the emergency department for any acute concerns such as decreased circulation your toes. I also suggest following up with primary care provider Prescriptions: New acetaminophen-codeine 300-30 mg tablet 1 tab PO Q6H PRN (Reason: pain) Qty: 10 RF: 0 No Action aspirin 81 mg Tablet,Delayed Release (Dr/Ec) 162 mg PO DAILY Qty: 0 RF: 0 trospium 60 mg Capsule,Extended Release 24hr 60 mg PO QAM Qty: 0 RF: 0 spironolactone 25 MG tablet 12.5 mg PO DAILY Qty: 0 RF: 0 simvastatin 20 MG tablet 20 mg PO BEDTIME Qty: 0 RF: 0 metoprolol succinate [Toprol XL] 50 MG tablet extended release 24 hr 50 mg PO DAILY Qty: 0 RF: 0 multivitamin Tablet 1 tab PO DAILY Qty: 0 RF: 0 Fish Oil (#FISH OIL) 1 iu PO Q DAY Qty: 0 RF: 0 WHEAT DEXTRIN (#BENEFIBER) 2 tsp PO BID Qty: 0 RF: 0 [VITAMIN D] Q DAY Qty: 0 RF: 0 [VITAMIN E] Q DAY Qty: 0 RF: 0 CMP BIEST1%/PROG7.5%/TEST1% See Rx Instructions .ROUTE .COMPLEX Qty: 60 RF: 3 estradiol [Estring] 2 mg (7.5 mcg /24 hour) ring 1 vaginalrin VAG Q 3 MONTHS Qty: 1 RF: 6 nitrofurantoin macrocrystal 50 mg capsule 50 mg PO BEDTIME Qty: 90 RF: 0 levothyroxine [Synthroid] 100 mcg tablet 100 mcg PO DAILY RF: 0 metformin 1,000 mg tablet 1,000 mg PO BID RF: 0 digoxin 125 mcg (0.125 mg) tablet 125 mcg PO DAILY RF: 0 Invokana 100 mg tablet 100 mg PO DAILY RF: 0 Referrals: [facility] [Provider Group] Jonatan Gil MD [Primary Care Provider] -
[2019-09-07] MEDS: CODEINE/ACETAMINOPHEN 30/300 TABLET 1 TAB PO (11:59)
[2019-09-07] MEDS: ONDANSETRON 4 MG ODT SL (11:59)
[2019-09-07 13:41] VITALS: BP 124/74; PULSE 66; RESP 16
== END 2019-09-07 13:10 | disposition home or self-care (01) ==
PROVIDERS: Emergency Provider Nurse Practitioner Family; PCP Internal Medicine
DX: S82.831A Other fracture of upper and lower end of right fibula, initial encounter for closed fracture (principal); W00.0XXA Fall on same level due to ice and snow, initial encounter
CPT/HCPCS: 29515; 73610; 99283; 99284

== ENCOUNTER → 2019-09-11 11:55 | Outpatient (CLI) | payer MEDICARE, OTHER, SELFPAY ==
[2019-09-11 12:43] LABS: Add Manual Diff / Slide Review NO; Basophils Absolute Auto 100 /uL (0-100); Basophils Percent Auto 0.6 % (0-2); Eosinophils Absolute Auto 200 /uL (0-450); Eosinophils Percent Auto 2.3 % (2-4); Hematocrit 42.5 % (36-46); Lymphocytes Absolute Auto 2000 /uL (1100-4500); Lymphocytes Percent Auto 21.8 % (25-40); Mean Corpuscular Volume 94.1 fL (80-100); Monocytes Absolute Auto 800 /uL (0-900); Monocytes Percent Auto 9.1 % (3-14); Neutrophils Absolute Auto 6100 /uL (1500-7000); Neutrophils Percent Auto 66.2 % (50-75); Platelet Count 278 X10^3/uL (150-400); Red Blood Cell Count 4.51 X10^6/uL (4.0-5.2); Red Cell Distribution Width 13.1 % (11.6-14.8); White Blood Cell Count 9.3 X10^3/uL (4.5-11.0)
[2019-09-11 12:53] LABS: Hemoglobin A1C% w Est Avg Glu 7.3 % (4.0-6.0)
== END ==
PROVIDERS: PCP Internal Medicine; Visit Provider Orthopaedic Surgery Adult Reconstructive Orthopaedic Surgery
DX: Z01.818 Encounter for other preprocedural examination (principal); Z01.812 Encounter for preprocedural laboratory examination; R73.9 Hyperglycemia, unspecified
CPT/HCPCS: 36415; 83036; 85025; 93005

== ENCOUNTER → 2019-10-29 11:14 | Outpatient (CLI) | payer MEDICARE, OTHER, SELFPAY ==
--- NOTE | 2019-10-29 | DI.MG.S_ITS ---
BILATERAL DIGITAL SCREENING MAMMOGRAM 3D/2D WITH CAD: 10/29/2019 CLINICAL: Routine screening. Family history of breast cancer. Comparison is made to exams dated: 10/17/2018 mammogram, 10/04/2017 mammogram, 08/30/2016 mammogram, 07/04/2015 mammogram, and 05/25/2014 mammogram - [facility]. There are scattered fibroglandular elements in both breasts. Current study was also evaluated with a Computer Aided Detection (CAD) system. No significant masses, calcifications, or other findings are seen in either breast. There has been no significant interval change. IMPRESSION: NEGATIVE There is no mammographic evidence of malignancy. A 1 year screening mammogram is recommended. This exam was interpreted at Station ID: [id number]. NOTE: For mammograms, a report in lay terms will be sent to the patient. Approximately 15% of breast malignancies will not be visualized mammographically. In the management of a palpable breast mass, a negative mammogram must not discourage biopsy of a clinically suspicious lesion. Electronically Signed By: David wayne/germán:10/29/2019 13:02:23 copy to: Juan Ramon Price letter sent: Normal Exam ACR BI-RADS Category 1: Negative [id number]
== END ==
PROVIDERS: PCP Internal Medicine; Referring Provider Internal Medicine; Visit Provider Internal Medicine
DX: Z12.31 Encounter for screening mammogram for malignant neoplasm of breast (principal); Z80.3 Family history of malignant neoplasm of breast
CPT/HCPCS: 77063; 77067

== ENCOUNTER → 2019-11-02 11:20 | Outpatient (CLI) | payer MEDICARE, OTHER, SELFPAY ==
[2019-11-02 12:12] LABS: Blood Urea Nitrogen 24 mg/dL (7-17); Calcium 10.5 mg/dL (8.4-10.2); Carbon Dioxide 27 mmol/L (22-32); Chloride 101 mmol/L (98-107); Estimated Glomerular Filt Rate > 60.0 mL/min (>60); Glucose 113 mg/dL (80-110); HEMOLYSIS < 15 (0-50); Potassium 4.6 mmol/L (3.4-5.1); Sodium 139 mmol/L (137-145)
== END ==
PROVIDERS: PCP Internal Medicine; Referring Provider Internal Medicine; Visit Provider Internal Medicine
DX: E11.9 Type 2 diabetes mellitus without complications (principal)
CPT/HCPCS: 36415; 80048; 83036

== ENCOUNTER → 2020-01-29 11:45 | Outpatient (CLI) | payer MEDICARE, OTHER, SELFPAY ==
[2020-01-29 12:44] LABS: Hemoglobin A1C% w Est Avg Glu 7.1 % (4.0-6.0)
[2020-01-29 13:01] LABS: BUN Creatinine Ratio 27.4 (6-22); Blood Urea Nitrogen 20 mg/dL (7-17); Calcium 9.8 mg/dL (8.4-10.2); Carbon Dioxide 27 mmol/L (22-32); Chloride 103 mmol/L (98-107); Estimated Glomerular Filt Rate > 60.0 mL/min (>60); Glucose 150 mg/dL (80-110); HEMOLYSIS < 15 (0-50); Sodium 139 mmol/L (137-145)
== END ==
PROVIDERS: PCP Internal Medicine; Referring Provider Internal Medicine; Visit Provider Internal Medicine
DX: E11.9 Type 2 diabetes mellitus without complications (principal); I48.0 Paroxysmal atrial fibrillation; E03.9 Hypothyroidism, unspecified
CPT/HCPCS: 36415; 80048; 83036

== ENCOUNTER → 2020-04-28 13:46 | Outpatient (CLI) | payer MEDICARE, OTHER, SELFPAY ==
[2020-04-28 14:20] LABS: Hemoglobin A1C% w Est Avg Glu 7.2 % (4.0-6.0)
[2020-04-28 14:30] LABS: Alanine Aminotransferase 25 IU/L (<35); Albumin 4.4 g/dL (3.5-5.0); Albumin Globulin Ratio 1.8 (1.0-2.8); Alkaline Phosphatase 68 U/L (38-126); Aspartate Aminotransferase 24 IU/L (14-36); BUN Creatinine Ratio 27.3 (6-22); Bilirubin Total 0.3 mg/dL (0.2-1.3); Blood Urea Nitrogen 21 mg/dL (7-17); Calcium 9.8 mg/dL (8.4-10.2); Carbon Dioxide 29 mmol/L (22-32); Chloride 103 mmol/L (98-107); Estimated Glomerular Filt Rate > 60.0 mL/min (>60); Globulin 2.5 g/dL (1.7-4.1); Glucose 177 mg/dL (80-110); HEMOLYSIS < 15 (0-50); Potassium 5.1 mmol/L (3.4-5.1); Sodium 138 mmol/L (137-145); Total Protein 6.9 g/dL (6.3-8.2)
[2020-04-28 15:04] LABS: TSH w/ Reflex to FT4 0.66 uIU/mL (0.47-4.68)
== END ==
PROVIDERS: PCP Internal Medicine; Referring Provider Internal Medicine; Visit Provider Internal Medicine
DX: E11.9 Type 2 diabetes mellitus without complications (principal); E78.2 Mixed hyperlipidemia; E03.9 Hypothyroidism, unspecified
CPT/HCPCS: 36415; 80053; 83036; 84443

== ENCOUNTER → 2020-06-20 11:39 | Outpatient (CLI) | payer MEDICARE, OTHER, SELFPAY ==
[2020-06-20 12:57] LABS: Digoxin 0.7 ng/mL (0.8-2.0)
== END ==
PROVIDERS: PCP Internal Medicine; Referring Provider Internal Medicine; Visit Provider Internal Medicine
DX: I48.0 Paroxysmal atrial fibrillation (principal)
CPT/HCPCS: 36415; 80162; 83735

== ENCOUNTER 2020-07-28 22:13 | Emergency (ER) | payer MEDICARE, OTHER, SELFPAY ==
[2020-07-28 22:22] VITALS: BP 142/72; PULSE 88; RESP 17; TEMP 36.8; O2SAT 99
[2020-07-28 22:25] VITALS: BP 142/72; PULSE 89; O2SAT 98
[2020-07-28 22:30] VITALS: BP 139/63; PULSE 87; RESP 16; O2SAT 100
[2020-07-28 22:46] LABS: Add Manual Diff / Slide Review YES; Hematocrit 44.1 % (36-46); Hemoglobin 14.4 g/dL (12.0-16.0); Mean Corpuscular HGB Conc 32.7 % (30-36); Mean Corpuscular Hemoglobin 30.7 PG (26-34); Platelet Count 257 X10^3/uL (150-400); Red Blood Cell Count 4.69 X10^6/uL (4.0-5.2); Red Cell Distribution Width 13.1 % (11.6-14.8); White Blood Cell Count 20.6 X10^3/uL (4.5-11.0)
--- NOTE | 2020-07-28 22:46 | DI.CT.S_ITS ---
PROCEDURE: CT ABDOMEN PELVIS W CON INDICATIONS: Bilateral lower abdominal pain TECHNIQUE: After the administration of intravenous contrast, 5 mm thick sections acquired from the diaphragm to the symphysis. 5 mm coronal and sagittal reformats were acquired. For radiation dose reduction, the following was used: automated exposure control, adjustment of mA and/or kV according to patient size. COMPARISON: [facility], CR, XR ABDOMEN 1 VIEW, 04/29/2020, 8:36. [facility], CT, CT ABDOMEN PELVIS W CON, 08/23/2018, 8:18. FINDINGS: Image quality: Excellent. ABDOMEN: Lung bases: Lung bases are clear. Heart size is normal. Dense mitral annular calcification is noted. Small hiatal hernia. Solid organs: A 6 mm rim calcified nodule in the hepatic dome is noted, unchanged. Liver is normal in size and enhancement. Gallbladder is normal. Biliary system is non dilated. Pancreas enhances normally. Spleen is normal in size and enhancement. No adrenal nodules. Kidneys demonstrate normal size and enhancement, without hydronephrosis. Peritoneum and bowel: There is focal thickening and pericolonic stranding in the distal transverse colon and splenic flexure consistent with colitis. There is a moderate amount of fecal load in colon. Bowel loops demonstrate normal wall thickness and caliber. No free fluid or air. Nodes and vessels: No retroperitoneal or mesenteric adenopathy by size criteria. Aorta and inferior vena cava are normal in size. Miscellaneous: No ventral hernias. PELVIS: Genitourinary: Bladder wall thickness is normal. Myomatous uterus. Noted is a pessary within vagina. No adnexal mass. No free fluid in the pelvis. Miscellaneous: No inguinal hernias or adenopathy. Bones: No suspicious bony lesions. No vertebral body compression fractures. Degenerative changes in the lower thoracic and lumbar spine. IMPRESSION: 1. Focal thickening and pericolonic stranding in the distal transverse colon and splenic flexure consistent with colitis. 2. Moderate amount of stool in colon. 3. Myomatous uterus. No significant discrepancy with the retail shift leader radiology preliminary report. Dictated by: Lewis Shirley M.D. on 07/29/2020 at 8:48 Approved by: Lewis Shirley M.D. on 07/29/2020 at 9:00
--- NOTE | 2020-07-28 22:48 | ED_ITS ---
HPI - General Adult General Chief complaint: Abdominal Pain Stated complaint: nausea Time Seen by Provider: 07/28/20 22:24 Source: patient Mode of arrival: Ambulatory Limitations: no limitations History of Present Illness HPI narrative: For evaluation of nausea and generalized abdominal pain. She states that the symptoms started earlier today became worse at approximately 0400 hours this afternoon. Has not vomited. States she felt like she was going to have some diarrhea but actually did not have any bowel movement. No urinary symptoms. She has had a kidney stone in the past and she states this somewhat f eels like that. No fevers. Did take a Zofran by mouth prior to arrival with only minimal improvement. No recent travel. No recent antibiotic use. Related Data Home Medications Medication Instructions Recorded Confirmed WHEAT DEXTRIN (#BENEFIBER) 2 tsp PO BID #0 03/25/12 07/28/20 aspirin 162 mg PO DAILY #0 03/25/12 07/28/20 metoprolol succinate [Toprol XL] 50 mg PO DAILY #0 03/25/12 07/28/20 simvastatin 20 mg PO BEDTIME #0 03/25/12 07/28/20 spironolactone 12.5 mg PO DAILY #0 03/25/12 07/28/20 trospium 60 mg PO QAM #0 03/25/12 07/28/20 canagliflozin [Invokana] 100 mg PO DAILY 09/07/19 07/28/20 digoxin 125 mcg PO DAILY 09/07/19 07/28/20 levothyroxine [Synthroid] 100 mcg PO DAILY 09/07/19 07/28/20 metformin 1,000 mg PO BID 09/07/19 07/28/20 metronidazole 0.75 % topical cream 1 applictn TOP DAILY 10/29/19 07/28/20 polyethylene glycol 3350 17 gram 17 gram PO DAILY 10/29/19 07/28/20 oral powder packet tazarotene 0.1 % topical cream 1 applictn TOP DAILY 10/29/19 07/28/20 lactulose 10 g PO DAILY 07/28/20 07/28/20 Previous Rx's Medication Instructions Recorded nitrofurantoin macrocrystal 50 mg 50 mg PO BEDTIME #90 cap 08/04/18 capsule CMP BIEST1%/PROG7.5%/TEST1% See Rx Instructions .ROUTE 09/24/19 .COMPLEX #60 gram estradiol See Rx Instructions .ROUTE 05/03/20 .COMPLEX #1 unspecified Allergies Allergy/AdvReac Type Severity Reaction Status Date / Time No Known Drug Allergies Allergy Verified 07/28/20 22:24 Review of Systems Constitutional Constitutional: Denies fatigue and Denies headache(s) ENT Ears, Nose, Mouth, and Throat: Denies headache(s) Cardiovascular Cardiovascular: Denies chest pain and Denies dyspnea Respiratory Respiratory: Denies dyspnea Gastrointestinal Gastrointestinal: Reports abdominal pain, Reports nausea and Denies vomiting Genitourinary Genitourinary: Denies dysuria Genitourinary: Denies dysuria and Denies vaginal discharge Musculoskeletal Musculoskeletal: Denies arthralgias and Denies myalgias Integumentary/Breasts Skin/Breast: Denies rash Neurologic Neurologic: Denies behavioral changes and Denies headache(s) Psychiatric Psychiatric: Denies behavioral changes Endocrine Endocrine: Denies fatigue Hematologic/Lymphatic Hematologic/Lymphatic: Denies easy bleeding and Denies easy bruising Allergic/Immunologic Allergic/Immunologic: Denies urticaria Patient History Medical History Atrial fibrillation Diabetes mellitus Fibula fracture Hyperlipidemia Social History Smoking Status: Never smoker Smoking Status: Never smoker alcohol intake frequency: other Substance Use Type: does not use Exam Initial Vital Signs Initial Vital Signs: Vital Signs Temperature 98.2 F 07/28/20 22:22 Pulse Rate 88 07/28/20 22:22 Respiratory Rate 17 07/28/20 22:22 Blood Pressure 142/72 H 07/28/20 22:22 Pulse Oximetry 99 07/28/20 22:22 Const General: cooperative and comfortable Limitations: mental status not altered [facility] Head: normal to inspection and normocephalic Resp Effort & Inspection: normal respiratory effort Auscultation: clear to auscultation bilaterally Cardio Rate: regular rate Rhythm: regular rhythm GI Inspection: non-distended Palpation: soft and tender (Generalized) Skin Lesions: no lesions Rashes: no rashes Neuro General: patient alert, patient awake and patient oriented x3 Cognition: normal cognition Speech: speech normal Extrem General: normal to inspection and capillary refill normal Psych Appearance: grossly normal and well kempt Course Orders Ordered: ED Orders 07/28/20 22:30 Complete Blood Count AUTO DIFF Stat Comprehensive Metabolic Panel Stat Lipase Stat 07/28/20 22:46 CT abdomen pelvis w con Stat 07/28/20 22:57 EKG-12 Lead Stat Discontinued Medications Sodium Chloride (Normal Saline 0.9%) 1,000 mls @ 1,000 mls/hr IV BOLUS ONE Stop: 07/28/20 23:45 Last Admin: 07/28/20 22:58 Dose: 1,000 mls/hr Documented by: KENJI Ketorolac Tromethamine (Ketorolac 60 Mg/2 Ml Vial) 30 mg IV NOW ONE Stop: 07/28/20 22:47 Last Admin: 07/28/20 22:59 Dose: 30 mg Documented by: KENJI Ondansetron HCl (Ondansetron 4 Mg/2 Ml Inj) 4 mg IV NOW ONE Stop: 07/28/20 23:15 Last Admin: 07/28/20 23:18 Dose: 4 mg Documented by: KENJI Vital Signs Vital signs: Vital Signs - 8 hr 07/28/20 22:22 07/28/20 22:25 07/28/20 22:30 Temperature 98.2 F Pulse Rate 88 89 87 Respiratory Rate 17 16 Blood Pressure 142/72 H 142/72 H 139/63 Pulse Oximetry 99 98 100 Medical Decision Making Lab Data Lab results reviewed: Yes I reviewed the patient's lab results. Result diagrams: 07/28/20 22:30 07/28/20 22:30 Labs: Lab Results 07/28/20 07/28/20 Range/Units 22:30 22:30 WBC 20.6 H (4.5-11.0) X10^3/uL RBC 4.69 (4.0-5.2) X10^6/uL Hgb 14.4 (12.0-16.0) g/dL Hct 44.1 (36-46) % MCV 94.0 (80-100) fL MCH 30.7 (26-34) PG MCHC 32.7 (30-36) % RDW 13.1 (11.6-14.8) % Plt Count 257 (150-400) X10^3/uL Neut % (Auto) Not Reportable Lymph % (Auto) Not Reportable [place] % (Auto) Not Reportable Eos % (Auto) Not Reportable Baso % (Auto) Not Reportable Lymph # (Auto) Not Reportable [place] # (Auto) Not Reportable Baso # (Auto) Not Reportable Total Counted 100 Seg Neutrophils % 86.0 H (38-70) % Band Neutrophils % 4.0 (3-7) % Lymphocytes % (Manual) 5.0 L (25-45) % Monocytes % (Manual) 5.0 (2-11) % Neutrophils # (Manual) 37218 H (9414-2684) /uL RBC Morphology Normal morphology Sodium 135 L (137-145) mmol/L Potassium 4.1 (3.4-5.1) mmol/L Chloride 101 (98-107) mmol/L Carbon Dioxide 26 (22-32) mmol/L BUN 24 H (7-17) mg/dL Creatinine 0.72 (0.52-1.04) mg/dL Estimated GFR > 60.0 (>60) mL/min BUN/Creatinine Ratio 33.3 H (6-22) Glucose 194 H (80-110) mg/dL Calcium 9.3 (8.4-10.2) mg/dL Total Bilirubin 0.8 (0.2-1.3) mg/dL AST 23 (14-36) IU/L ALT 26 (<35) IU/L Alkaline Phosphatase 76 (38-126) U/L Total Protein 7.4 (6.3-8.2) g/dL Albumin 4.3 (3.5-5.0) g/dL Globulin 3.1 (1.7-4.1) g/dL Albumin/Globulin Ratio 1.4 (1.0-2.8) Lipase 25 (23-300) U/L Urine Dip Bedside Urine Glucose 100 mg/dl Bedside Urine Bilirubin - Negative Bedside Urine Ketone +++ 80 Urine Specific [place] 1.025 Bedside Urine Occult Blood - Negative Bedside Urine pH 5.5 Bedside Urine Protein - Negative Bedside Urine Urobilinogen - Negative Bedside Urine Nitrite - Negative Bedside Urine Leukocytes - Negative Esterase Point of care testing: Urine Dip Bedside Urine Glucose 100 mg/dl Bedside Urine Bilirubin - Negative Bedside Urine Ketone +++ 80 Urine Specific [place] 1.025 Bedside Urine Occult Blood - Negative Bedside Urine pH 5.5 Bedside Urine Protein - Negative Bedside Urine Urobilinogen - Negative Bedside Urine Nitrite - Negative Bedside Urine Leukocytes - Negative Esterase Imaging Data CT scan - abdomen/pelvis: Radiologist's Impression: Suspicious for colitis involving the distal transverse colon. No pneumatosis or bowel obstruction. Mild solid stool throughout the colon. No intraperitoneal free air fluid No hydronephrosis. ECG Data Attestation: I personally reviewed and interpreted this ECG as follows: Prior ECG tracings: not available for review Interpretation: Sinus rhythm Ventricular rate [address] T wave changes MDM Narrative Medical decision making narrative: Does have a leukocytosis however CT scan shows colitis. She is hyperglycemic. CO2 is 26 of low suspicion for DKA. Has a relatively benign abdominal exam. No prior history of ulcerative colitis or Crohn's disease. No recent antibiotics. No recent travel. Feel we can hold. On antibiotics for now. She does have nausea medicine at home. She denied any offer for pain medication. She was given return precautions and follow-up instructions. She expressed understanding and agreement. Discharge Plan Departure Patient Disposition: Home Clinical Impression: Colitis Instructions: DI for Colitis Activity Restrictions/Additional Instructions: You can use the anti nausea medicine that you have at home as needed. Continue take the rest of your medications as directed contact your primary provider for a follow-up. Return to the emergency department for any new or worsening symptoms Prescriptions: No Action aspirin 81 mg Tablet,Delayed Release (Dr/Ec) 162 mg PO DAILY Qty: 0 RF: 0 trospium 60 mg Capsule,Extended Release 24hr 60 mg PO QAM Qty: 0 RF: 0 spironolactone 25 MG tablet 12.5 mg PO DAILY Qty: 0 RF: 0 simvastatin 20 MG tablet 20 mg PO BEDTIME Qty: 0 RF: 0 metoprolol succinate [Toprol XL] 50 MG tablet extended release 24 hr 50 mg PO DAILY Qty: 0 RF: 0 WHEAT DEXTRIN (#BENEFIBER) 2 tsp PO BID Qty: 0 RF: 0 CMP BIEST1%/PROG7.5%/TEST1% See Rx Instructions .ROUTE .COMPLEX Qty: 60 RF: 3 Estring 2 mg (7.5 mcg /24 hour) ring See Rx Instructions .ROUTE .COMPLEX Qty: 1 RF: 3 nitrofurantoin macrocrystal 50 mg capsule 50 mg PO BEDTIME Qty: 90 RF: 0 polyethylene glycol 3350 [Miralax] 17 gram powder in packet 17 gram PO DAILY RF: 0 tazarotene [Tazorac] 0.1 % cream 1 applictn TOP DAILY RF: 0 metronidazole 0.75 % cream 1 applictn TOP DAILY RF: 0 levothyroxine [Synthroid] 100 mcg tablet 100 mcg PO DAILY RF: 0 metformin 1,000 mg tablet 1,000 mg PO BID RF: 0 digoxin 125 mcg (0.125 mg) tablet 125 mcg PO DAILY RF: 0 Invokana 100 mg tablet 100 mg PO DAILY RF: 0 lactulose 10 gram/15 mL (15 mL) Solution 10 g PO DAILY RF: 0 Referrals: Jonatan Gil MD [Primary Care Provider] -
--- NOTE | 2020-07-28 22:48 | ED.GENADULT ---
HPI - General Adult General Chief complaint: Abdominal Pain Stated complaint: nausea Time Seen by Provider: 07/28/20 22:24 Source: patient Mode of arrival: Ambulatory Related Data Home Medications Medication Instructions Recorded Confirmed Fish Oil (#FISH OIL) 1 iu PO Q DAY #0 03/25/12 10/29/19 WHEAT DEXTRIN (#BENEFIBER) 2 tsp PO BID #0 03/25/12 10/29/19 aspirin 162 mg PO DAILY #0 03/25/12 10/29/19 metoprolol succinate [Toprol XL] 50 mg PO DAILY #0 03/25/12 10/29/19 simvastatin 20 mg PO BEDTIME #0 03/25/12 10/29/19 spironolactone 12.5 mg PO DAILY #0 03/25/12 10/29/19 trospium 60 mg PO QAM #0 03/25/12 10/29/19 canagliflozin [Invokana] 100 mg PO DAILY 09/07/19 10/29/19 digoxin 125 mcg PO DAILY 09/07/19 10/29/19 levothyroxine [Synthroid] 100 mcg PO DAILY 09/07/19 10/29/19 metformin 1,000 mg PO BID 09/07/19 10/29/19 calcium-vitamin D3-vitamin K 500 1 tab PO DAILY 10/29/19 10/29/19 mg-100 unit-40 mcg chewable tablet cranberry 500 mg capsule 500 mg PO BID 10/29/19 10/29/19 metronidazole 0.75 % topical cream 1 applictn TOP DAILY 10/29/19 10/29/19 polyethylene glycol 3350 17 gram 17 gram PO DAILY 10/29/19 10/29/19 oral powder packet tazarotene 0.1 % topical cream 1 applictn TOP DAILY 10/29/19 10/29/19 turmeric root extract 500 mg 500 mg PO DAILY 10/29/19 10/29/19 capsule Previous Rx's Medication Instructions Recorded nitrofurantoin macrocrystal 50 mg 50 mg PO BEDTIME #90 cap 08/04/18 capsule CMP BIEST1%/PROG7.5%/TEST1% See Rx Instructions .ROUTE 09/24/19 .COMPLEX #60 gram estradiol See Rx Instructions .ROUTE 05/03/20 .COMPLEX #1 unspecified Allergies Allergy/AdvReac Type Severity Reaction Status Date / Time No Known Drug Allergies Allergy Verified 07/28/20 22:24 Patient History Medical History (Updated 10/29/19 @ 11:15 by Juan Ramon Price MD) Atrial fibrillation Diabetes mellitus Fibula fracture Hyperlipidemia Social History Smoking Status: Never smoker Smoking Status: Never smoker alcohol intake frequency: other Substance Use Type: does not use Exam Initial Vital Signs Initial Vital Signs: Vital Signs Temperature 98.2 F 07/28/20 22:22 Pulse Rate 88 07/28/20 22:22 Respiratory Rate 17 07/28/20 22:22 Blood Pressure 142/72 H 07/28/20 22:22 Pulse Oximetry 99 07/28/20 22:22 Course Orders Ordered: ED Orders 07/28/20 22:24 Complete Blood Count AUTO DIFF Stat Comprehensive Metabolic Panel Stat Lipase Stat 07/28/20 22:46 CT abdomen pelvis w con Stat Sodium Chloride (Normal Saline 0.9%) 1,000 mls @ 1,000 mls/hr IV BOLUS ONE Stop: 07/28/20 23:45 Discontinued Medications Ketorolac Tromethamine (Ketorolac 60 Mg/2 Ml Vial) 30 mg IV NOW ONE Stop: 07/28/20 22:47 Vital Signs Vital signs: Vital Signs - 8 hr 07/28/20 22:22 07/28/20 22:25 07/28/20 22:30 Temperature 98.2 F Pulse Rate 88 89 87 Respiratory Rate 17 16 Blood Pressure 142/72 H 142/72 H 139/63 Pulse Oximetry 99 98 100 Medical Decision Making Lab Data Result diagrams: 07/28/20 22:30 07/28/20 22:30 Labs: Lab Results 07/28/20 Range/Units 22:30 WBC 20.6 H (4.5-11.0) X10^3/uL RBC 4.69 (4.0-5.2) X10^6/uL Hgb 14.4 (12.0-16.0) g/dL Hct 44.1 (36-46) % MCV 94.0 (80-100) fL MCH 30.7 (26-34) PG MCHC 32.7 (30-36) % RDW 13.1 (11.6-14.8) % Plt Count 257 (150-400) X10^3/uL Neut % (Auto) Not Reportable Lymph % (Auto) Not Reportable [place] % (Auto) Not Reportable Eos % (Auto) Not Reportable Baso % (Auto) Not Reportable Lymph # (Auto) Not Reportable [place] # (Auto) Not Reportable Baso # (Auto) Not Reportable Urine Dip Bedside Urine Glucose 100 mg/dl Bedside Urine Bilirubin - Negative Bedside Urine Ketone +++ 80 Urine Specific [place] 1.025 Bedside Urine Occult Blood - Negative Bedside Urine pH 5.5 Bedside Urine Protein - Negative Bedside Urine Urobilinogen - Negative Bedside Urine Nitrite - Negative Bedside Urine Leukocytes - Negative Esterase Point of care testing: Urine Dip Bedside Urine Glucose 100 mg/dl Bedside Urine Bilirubin - Negative Bedside Urine Ketone +++ 80 Urine Specific [place] 1.025 Bedside Urine Occult Blood - Negative Bedside Urine pH 5.5 Bedside Urine Protein - Negative Bedside Urine Urobilinogen - Negative Bedside Urine Nitrite - Negative Bedside Urine Leukocytes - Negative Esterase Discharge Plan Departure Prescriptions: No Action aspirin 81 mg Tablet,Delayed Release (Dr/Ec) 162 mg PO DAILY Qty: 0 RF: 0 trospium 60 mg Capsule,Extended Release 24hr 60 mg PO QAM Qty: 0 RF: 0 spironolactone 25 MG tablet 12.5 mg PO DAILY Qty: 0 RF: 0 simvastatin 20 MG tablet 20 mg PO BEDTIME Qty: 0 RF: 0 metoprolol succinate [Toprol XL] 50 MG tablet extended release 24 hr 50 mg PO DAILY Qty: 0 RF: 0 Fish Oil (#FISH OIL) 1 iu PO Q DAY Qty: 0 RF: 0 WHEAT DEXTRIN (#BENEFIBER) 2 tsp PO BID Qty: 0 RF: 0 CMP BIEST1%/PROG7.5%/TEST1% See Rx Instructions .ROUTE .COMPLEX Qty: 60 RF: 3 Estring 2 mg (7.5 mcg /24 hour) ring See Rx Instructions .ROUTE .COMPLEX Qty: 1 RF: 3 nitrofurantoin macrocrystal 50 mg capsule 50 mg PO BEDTIME Qty: 90 RF: 0 calcium-vitamin D3-vitamin K 500-100-40 mg-unit-mcg tablet,chewable 1 tab PO DAILY RF: 0 polyethylene glycol 3350 [Miralax] 17 gram powder in packet 17 gram PO DAILY RF: 0 tazarotene [Tazorac] 0.1 % cream 1 applictn TOP DAILY RF: 0 metronidazole 0.75 % cream 1 applictn TOP DAILY RF: 0 turmeric root extract 500 mg capsule 500 mg PO DAILY RF: 0 cranberry 500 mg capsule 500 mg PO BID RF: 0 levothyroxine [Synthroid] 100 mcg tablet 100 mcg PO DAILY RF: 0 metformin 1,000 mg tablet 1,000 mg PO BID RF: 0 digoxin 125 mcg (0.125 mg) tablet 125 mcg PO DAILY RF: 0 Invokana 100 mg tablet 100 mg PO DAILY RF: 0
[2020-07-28 22:50] LABS: Alanine Aminotransferase 26 IU/L (<35); Albumin 4.3 g/dL (3.5-5.0); Albumin Globulin Ratio 1.4 (1.0-2.8); Alkaline Phosphatase 76 U/L (38-126); Aspartate Aminotransferase 23 IU/L (14-36); BUN Creatinine Ratio 33.3 (6-22); Bilirubin Total 0.8 mg/dL (0.2-1.3); Blood Urea Nitrogen 24 mg/dL (7-17); Calcium 9.3 mg/dL (8.4-10.2); Carbon Dioxide 26 mmol/L (22-32); Chloride 101 mmol/L (98-107); Estimated Glomerular Filt Rate > 60.0 mL/min (>60); Globulin 3.1 g/dL (1.7-4.1); Glucose 194 mg/dL (80-110); HEMOLYSIS < 15 (0-50); Lipase 25 U/L (23-300); Potassium 4.1 mmol/L (3.4-5.1); Sodium 135 mmol/L (137-145); Total Protein 7.4 g/dL (6.3-8.2)
[2020-07-28] MEDS: SODIUM CHLORIDE 0.9% 1,000 ML 1000 ML IV (22:58)
[2020-07-28] MEDS: KETOROLAC 60 MG/2 ML VIAL 30 MG IV (22:59)
[2020-07-28 23:00] VITALS: PULSE 85; RESP 18; O2SAT 98
[2020-07-28 23:18] VITALS: BP 119/61; PULSE 85; RESP 13; O2SAT 95
[2020-07-28] MEDS: ONDANSETRON 4 MG/2 ML INJ IV (23:18)
[2020-07-28 23:28] LABS: Neutrophils Absolute Manual 18540 /uL (3000-5900); RBC Morphology Normal Morphology; Total Cells Counted 100
[2020-07-28 23:30] VITALS: BP 117/60; PULSE 85; RESP 17; O2SAT 97
[2020-07-29] VITALS: BP 115/63; PULSE 85; RESP 23; O2SAT 97
== END 2020-07-29 00:21 | disposition home or self-care (01) ==
PROVIDERS: Emergency Provider Emergency Medicine; PCP Internal Medicine; Referring Provider Internal Medicine
DX: K52.9 Noninfective gastroenteritis and colitis, unspecified (principal); R11.0 Nausea; E11.65 Type 2 diabetes mellitus with hyperglycemia; I48.91 Unspecified atrial fibrillation; Z79.82 Long term (current) use of aspirin
CPT/HCPCS: 36415; 74177; 80053; 81003; 83690; 85007; 85025; 93005; 96361; 96374; 96375; 99284; J1885; J2405; Q9967

== ENCOUNTER 2020-07-31 07:38 | Emergency (ER) | payer MEDICARE, OTHER, SELFPAY ==
[2020-07-31 07:44] VITALS: BMI 26.5
--- NOTE | 2020-07-31 07:59 | ED.ABDPAIN ---
HPI - Abdominal Pain General Chief Complaint: Abdominal Pain Stated Complaint: bowel obstruction, hasn't improved since 07/28 Time Seen by Provider: 07/31/20 07:59 Source: patient and old records reviewed Mode of arrival: Ambulatory Limitations: no limitations History of Present Illness HPI narrative: This is a 69-year-old female who comes to the emergency department with complaint of abdominal pain, nausea without vomiting except on . No bowel movements but has passed a very small amount of flatus. Patient was seen last on July 28, 3 days prior for nausea, epigastric upper abdominal pain and no bowel movements. She was found to have colitis, she was sent home with Dianna. She has been afebrile, she has been nauseated but able to eat small amounts of food and drink fluids, she has not had any vomiting since . She has not had a bowel movement since before then. She states she has passed a very small amount of gas. She states she does not feel like there is any stool in the rectal vault. Continues to have abdominal pain in the upper abdomen but on examination has generalized abdominal pain which is different from her last evaluation. Patient states her abdominal pain is not worsened but is not improved. She did contact her primary care who recommended she come in for evaluation. She has had regular urination with no dark urine or decrease in output. She does have a history of atrial fibrillation, diabetes type 2 and is on Invokana as well as metformin, dyslipidemia. She is on macrodantin daily for recurrent UTI's. She denies any prior abdominal surgeries and denies other surgeries except for fracture repair in her right ankle last August. She states doxycycline epinephrine injections gives her atrial fibrillation but denies any other medication allergies. She is accompanied by her . Related Data Home Medications Medication Instructions Recorded Confirmed WHEAT DEXTRIN (#BENEFIBER) 2 tsp PO BID #0 03/25/12 07/28/20 aspirin 162 mg PO DAILY #0 03/25/12 07/28/20 metoprolol succinate [Toprol XL] 50 mg PO DAILY #0 03/25/12 07/28/20 simvastatin 20 mg PO BEDTIME #0 03/25/12 07/28/20 spironolactone 12.5 mg PO DAILY #0 03/25/12 07/28/20 trospium 60 mg PO QAM #0 03/25/12 07/28/20 canagliflozin [Invokana] 100 mg PO DAILY 09/07/19 07/28/20 digoxin 125 mcg PO DAILY 09/07/19 07/28/20 levothyroxine [Synthroid] 100 mcg PO DAILY 09/07/19 07/28/20 metformin 1,000 mg PO BID 09/07/19 07/28/20 metronidazole 0.75 % topical cream 1 applictn TOP DAILY 10/29/19 07/28/20 polyethylene glycol 3350 17 gram 17 gram PO DAILY 10/29/19 07/28/20 oral powder packet tazarotene 0.1 % topical cream 1 applictn TOP DAILY 10/29/19 07/28/20 lactulose 10 g PO DAILY 07/28/20 07/28/20 Previous Rx's Medication Instructions Recorded nitrofurantoin macrocrystal 50 mg 50 mg PO BEDTIME #90 cap 08/04/18 capsule CMP BIEST1%/PROG7.5%/TEST1% See Rx Instructions .ROUTE 09/24/19 .COMPLEX #60 gram estradiol See Rx Instructions .ROUTE 05/03/20 .COMPLEX #1 unspecified docusate sodium [Colace] 100 mg PO BID PRN #20 cap 07/31/20 Allergies Allergy/AdvReac Type Severity Reaction Status Date / Time No Known Drug Allergies Allergy Verified 07/31/20 07:48 Review of Systems Review of Systems ROS Unobtainable: All systems reviewed & are unremarkable except as noted in HPI and below Patient History Medical History (Updated 07/31/20 @ 10:48 by Arelis Knight DO) Atrial fibrillation Diabetes mellitus Fibula fracture Hyperlipidemia Social History Smoking Status: Never smoker Smoking Status: Never smoker alcohol intake frequency: 0-2 drinks per day Substance Use Type: does not use Exam Narrative Exam Narrative: GENERAL: Alert and oriented x three, well-nourished, well-appearing female in mild distress. HEENT: Head normocephalic, atraumatic, EOMI, pupils reactive, face symmetric, moist mucous membranes NECK: Supple, full range of motion CARDIOVASCULAR: Regular rate and rhythm without murmurs, rubs or gallops. RESPIRATORY: Breath sounds equal bilaterally, no wheezes rales or rhonchi. ABDOMEN: Soft, mild generalized tenderness. Mildly distended but with no tympany. Normoactive bowel sounds all 4 quadrants. No guarding or rebound, rigidity, no mass. : No CVA tenderness EXTREMITIES: Normal range of motion, no clubbing or edema. Neurovascularly intact NEUROLOGICAL: Cranial nerves II through XII grossly intact. Moving all extremities SKIN: Warm, dry, no petechiae, no rashes or lesions. Initial Vital Signs Initial Vital Signs: Vital Signs Pulse Rate 77 07/31/20 11:02 Respiratory Rate 18 07/31/20 11:02 Blood Pressure 111/62 07/31/20 11:02 Pulse Oximetry 95 07/31/20 11:02 Course Orders Ordered: ED Orders 07/31/20 08:29 CT abdomen pelvis w con Stat Discontinued Medications Sodium Chloride (Normal Saline 0.9%) 1,000 mls @ 1,000 mls/hr IV BOLUS ONE Stop: 07/31/20 09:28 Last Infusion: 07/31/20 11:09 Dose: 0 mls/hr Documented by: Admin: 07/31/20 08:39 Dose: 1,000 mls/hr Documented by: ALEJANDRA Ketorolac Tromethamine (Ketorolac 60 Mg/2 Ml Vial) 15 mg IV NOW ONE Stop: 07/31/20 08:30 Last Admin: 07/31/20 08:38 Dose: 15 mg Documented by: ALEJANDRA Magnesium Citrate (Magnesium Citrate 300 Ml Solution) 300 ml PO NOW ONE Stop: 07/31/20 10:49 Last Admin: 07/31/20 11:01 Dose: 300 ml Documented by: GUY Ondansetron HCl (Ondansetron 4 Mg/2 Ml Inj) 4 mg IV NOW ONE Stop: 07/31/20 08:30 Last Admin: 07/31/20 08:39 Dose: 4 mg Documented by: ALEJANDRA Reevaluation(s) Reevaluation #1: Patient updated on labs and imaging which have improved. Would defer starting any antibiotics and start bowel regimen to help patient have more consistent bowel movements. Discussed narcotics will slow her down although she has not been taking these regularly also she has been taking some Zofran so she is able to avoid this that may also slow transit although if she is feeling nauseated I would recommend she continue it as needed. Time: 10:49 Vital Signs Vital signs: Vital Signs - 8 hr 07/31/20 11:02 07/31/20 11:07 Pulse Rate 77 71 Respiratory Rate 18 15 Blood Pressure 111/62 122/62 Pulse Oximetry 95 99 MDM - Abdominal Pain Lab Data Attestation: I reviewed the patient's lab results. Result diagrams: 07/31/20 07:54 07/31/20 07:54 Labs: Lab Results 07/31/20 07/31/20 07/31/20 Range/Units 07:54 07:54 07:54 WBC 12.6 H (4.5-11.0) X10^3/uL RBC 4.12 (4.0-5.2) X10^6/uL Hgb 12.7 (12.0-16.0) g/dL Hct 38.5 (36-46) % MCV 93.4 (80-100) fL MCH 30.8 (26-34) PG MCHC 33.0 (30-36) % RDW 13.2 (11.6-14.8) % Plt Count 224 (150-400) X10^3/uL Neut % (Auto) 75.3 H (50-75) % Lymph % (Auto) 15.1 L (25-40) % [place] % (Auto) 8.1 (3-14) % Eos % (Auto) 0.8 L (2-4) % Baso % (Auto) 0.7 (0-2) % Neut # (Auto) 9500 H (7661-8498) /uL Lymph # (Auto) 1900 (7063-3754) /uL [place] # (Auto) 1000 H (0-900) /uL Eos # (Auto) 100 (0-450) /uL Baso # (Auto) 100 (0-100) /uL PT 12.2 (10.1-12.7) SECONDS INR 1.1 (0.9-1.3) APTT 28 (26.4-36.2) SECONDS Sodium 134 L (137-145) mmol/L Potassium 3.8 (3.4-5.1) mmol/L Chloride 98 (98-107) mmol/L Carbon Dioxide 28 (22-32) mmol/L BUN 16 (7-17) mg/dL Creatinine 0.76 (0.52-1.04) mg/dL Estimated GFR > 60.0 (>60) mL/min BUN/Creatinine Ratio 21.1 (6-22) Glucose 148 H (80-110) mg/dL Calcium 9.1 (8.4-10.2) mg/dL Total Bilirubin 0.8 (0.2-1.3) mg/dL AST 21 (14-36) IU/L ALT 17 (<35) IU/L Alkaline Phosphatase 70 (38-126) U/L Total Protein 7.2 (6.3-8.2) g/dL Albumin 4.0 (3.5-5.0) g/dL Globulin 3.2 (1.7-4.1) g/dL Albumin/Globulin Ratio 1.3 (1.0-2.8) Lipase 22 L (23-300) U/L Point of care testing: Urine Dip Bedside Urine Glucose 500 mg/dl Bedside Urine Bilirubin - Negative Bedside Urine Ketone + 15 Urine Specific [place] 1.010 Bedside Urine Occult Blood - Negative Bedside Urine pH 6.0 Bedside Urine Urobilinogen - Negative Bedside Urine Nitrite - Negative Bedside Urine Leukocytes - Negative Esterase Imaging Data CT scan - abdomen/pelvis: Radiologist's Impression: [address] [id number] Scan ReportSigned Patient: Kiera Welch R#: [id number]: 1950cct:[id number]/Sex: 69 / FDate of Service: 07/31/20Loc: EDAccession Number: [id number] Procedure: CT abdomen pelvis w con Ordering Provider: Arelis Knight D.O. PROCEDURE: CT ABDOMEN PELVIS W CON INDICATIONS: abdominal pain, spread, no BM, colitis ? ileus TECHNIQUE: Oral contrast was given. After the administration of intravenous contrast, 5 mm thick sections acquired from the diaphragm to the symphysis. 5 mm coronal and sagittal reformats were acquired. For radiation dose reduction, the following was used: automated exposure control, adjustment of mA and/or kV according to patient size. COMPARISON: [facility], CT, CT ABDOMEN PELVIS W CON, 08/23/2018, 8:18. [facility], CT, CT ABDOMEN PELVIS W CON, 07/28/2020, 22:56. FINDINGS: Image quality: Excellent. ABDOMEN: Lung bases: Lung bases are clear. Heart size is normal. There is a small to moderate hiatal hernia. Solid organs: Liver is normal in size and enhancement. Gallbladder demonstrates apparent vicarious excretion of contrast. Biliary system is non dilated. Pancreas enhances normally. Spleen is normal in size and enhancement. No adrenal nodules. Kidneys demonstrate normal size and enhancement, without hydronephrosis. Peritoneum and bowel: The previously seen descending colon wall thickening is much improved. Bowel loops otherwise demonstrate normal wall thickness and caliber. No free fluid or air. There is a moderate amount of stool seen within the colon. Nodes and vessels: No retroperitoneal or mesenteric adenopathy by size criteria. Aorta and inferior vena cava are normal in size. Miscellaneous: No ventral hernias. PELVIS: Genitourinary: No bladder wall thickening is seen. There is a pessary seen at the vaginal apex. Uterine fibroids are faintly seen. No adnexal masses are seen. Miscellaneous: No inguinal hernias or adenopathy. Bones: No suspicious bony lesions. No vertebral body compression fractures. Mild dextroconvex scoliotic curvature is seen. Degenerative changes are seen throughout, which are worst at L5-S1. IMPRESSION: There is a moderate amount of stool seen within the colon. Please correlate with an underlying history of constipation. No significant small bowel abnormality is seen. Improved wall thickening seen involving the descending colon. Incidental note is made of: Small to moderate hiatal hernia Vicarious excretion of contrast within the gallbladder Pessary Dextroconvex scoliotic curvature L5-S1 degenerative change Dictated by: Anjel Perkins M.D. on 07/31/2020 at 9:29 Approved by: Anjel Perkins M.D. on 07/31/2020 at 9:38 ECG Data Attestation: I personally reviewed and interpreted this ECG as follows: Prior ECG tracings: available for review Interpretation: Junctional rhythm with a rate of 76, QRS of 82 and QTC of 405. Patient does appear to have P waves with some beats. Nonspecific ST change. Patient EKG appears similar to prior from 07/28/20. MDM Narrative Medical decision making narrative: This is a 69-year-old female who comes in with complaints of colitis which was diagnosed earlier in the week on CT imaging. She has continued to have abdominal discomfort, mild nausea but been able to tolerate oral food but has not had a bowel movement even before. She has been passing gas. She has tried some oral laxatives but without success as well as an enema at home. She does not have any stool in the rectal vault that she feels or anticipates. Lab work shows improvement of her leukocytosis, sodium of 134 with glucose slightly elevated 148 but also improved and abdominal labs are normal range except for a mildly low lipase. Patient is wall thickening has improved and there was a moderate amount of stool within the colon. Plan to give the patient a bottle of magnesium citrate as well as a bowel regimen to help her have bowel movements to encourage continued hydration and to avoid any additional narcotics. Patient states she did take 2 tramadol earlier this week but has not taken any additional narcotics although this likely worsened her symptoms in terms of constipation. Discharge Plan Departure Patient Disposition: Home Clinical Impression: Colitis, Constipation Instructions: DI for Constipation Activity Restrictions/Additional Instructions: Follow-up with your physician in the next week for recheck. I would avoid any narcotics as these will slow your bowel movements. Continue to hydrate with fluids as best he can. You may continue Zofran as needed although this can occasionally also cause some constipation. Take Colace 1-2 tablets twice daily as needed for constipation. You may also take MiraLax once daily with this. Prescription to [facility] Drink 1/2 bottle of magnesium citrate if no improvement or change after for 5 hours drink the 2nd half of the bottle. If you are having fevers, worsening abdominal pain, vomiting, if you are continuing not have bowel movements and are not having or passing any gas or having any other new or concerning symptoms return to the emergency department for re-evaluation Prescriptions: New docusate sodium [Colace] 100 mg capsule 100 mg PO BID PRN (Reason: constipation) Qty: 20 RF: 0 No Action aspirin 81 mg Tablet,Delayed Release (Dr/Ec) 162 mg PO DAILY Qty: 0 RF: 0 trospium 60 mg Capsule,Extended Release 24hr 60 mg PO QAM Qty: 0 RF: 0 spironolactone 25 MG tablet 12.5 mg PO DAILY Qty: 0 RF: 0 simvastatin 20 MG tablet 20 mg PO BEDTIME Qty: 0 RF: 0 metoprolol succinate [Toprol XL] 50 MG tablet extended release 24 hr 50 mg PO DAILY Qty: 0 RF: 0 WHEAT DEXTRIN (#BENEFIBER) 2 tsp PO BID Qty: 0 RF: 0 CMP BIEST1%/PROG7.5%/TEST1% See Rx Instructions .ROUTE .COMPLEX Qty: 60 RF: 3 Estring 2 mg (7.5 mcg /24 hour) ring See Rx Instructions .ROUTE .COMPLEX Qty: 1 RF: 3 nitrofurantoin macrocrystal 50 mg capsule 50 mg PO BEDTIME Qty: 90 RF: 0 polyethylene glycol 3350 [Miralax] 17 gram powder in packet 17 gram PO DAILY RF: 0 tazarotene [Tazorac] 0.1 % cream 1 applictn TOP DAILY RF: 0 metronidazole 0.75 % cream 1 applictn TOP DAILY RF: 0 levothyroxine [Synthroid] 100 mcg tablet 100 mcg PO DAILY RF: 0 metformin 1,000 mg tablet 1,000 mg PO BID RF: 0 digoxin 125 mcg (0.125 mg) tablet 125 mcg PO DAILY RF: 0 Invokana 100 mg tablet 100 mg PO DAILY RF: 0 lactulose 10 gram/15 mL (15 mL) Solution 10 g PO DAILY RF: 0 Referrals: Jonatan Gil MD [Primary Care Provider] -
[2020-07-31 08:03] LABS: Add Manual Diff / Slide Review NO; Basophils Absolute Auto 100 /uL (0-100); Basophils Percent Auto 0.7 % (0-2); Eosinophils Absolute Auto 100 /uL (0-450); Eosinophils Percent Auto 0.8 % (2-4); Hematocrit 38.5 % (36-46); Hemoglobin 12.7 g/dL (12.0-16.0); Lymphocytes Absolute Auto 1900 /uL (1100-4500); Lymphocytes Percent Auto 15.1 % (25-40); Mean Corpuscular Hemoglobin 30.8 PG (26-34); Mean Corpuscular Volume 93.4 fL (80-100); Monocytes Absolute Auto 1000 /uL (0-900); Monocytes Percent Auto 8.1 % (3-14); Neutrophils Absolute Auto 9500 /uL (1500-7000); Neutrophils Percent Auto 75.3 % (50-75); Platelet Count 224 X10^3/uL (150-400); Red Blood Cell Count 4.12 X10^6/uL (4.0-5.2); Red Cell Distribution Width 13.2 % (11.6-14.8); White Blood Cell Count 12.6 X10^3/uL (4.5-11.0)
[2020-07-31 08:10] LABS: INR 1.1 (0.9-1.3); Prothrombin Time 12.2 SECONDS (10.1-12.7)
[2020-07-31 08:12] LABS: PTT Partial Thromboplastin Tim 28 SECONDS (26.4-36.2)
[2020-07-31 08:14] LABS: Alanine Aminotransferase 17 IU/L (<35); Albumin Globulin Ratio 1.3 (1.0-2.8); Alkaline Phosphatase 70 U/L (38-126); Aspartate Aminotransferase 21 IU/L (14-36); BUN Creatinine Ratio 21.1 (6-22); Bilirubin Total 0.8 mg/dL (0.2-1.3); Blood Urea Nitrogen 16 mg/dL (7-17); Calcium 9.1 mg/dL (8.4-10.2); Carbon Dioxide 28 mmol/L (22-32); Chloride 98 mmol/L (98-107); Estimated Glomerular Filt Rate > 60.0 mL/min (>60); Globulin 3.2 g/dL (1.7-4.1); Glucose 148 mg/dL (80-110); HEMOLYSIS < 15 (0-50); Lipase 22 U/L (23-300); Potassium 3.8 mmol/L (3.4-5.1); Sodium 134 mmol/L (137-145); Total Protein 7.2 g/dL (6.3-8.2)
--- NOTE | 2020-07-31 08:29 | DI.CT.S_ITS ---
PROCEDURE: CT ABDOMEN PELVIS W CON INDICATIONS: abdominal pain, spread, no BM, colitis ? ileus TECHNIQUE: Oral contrast was given. After the administration of intravenous contrast, 5 mm thick sections acquired from the diaphragm to the symphysis. 5 mm coronal and sagittal reformats were acquired. For radiation dose reduction, the following was used: automated exposure control, adjustment of mA and/or kV according to patient size. COMPARISON: [facility], CT, CT ABDOMEN PELVIS W CON, 08/23/2018, 8:18. [facility], CT, CT ABDOMEN PELVIS W CON, 07/28/2020, 22:56. FINDINGS: Image quality: Excellent. ABDOMEN: Lung bases: Lung bases are clear. Heart size is normal. There is a small to moderate hiatal hernia. Solid organs: Liver is normal in size and enhancement. Gallbladder demonstrates apparent vicarious excretion of contrast. Biliary system is non dilated. Pancreas enhances normally. Spleen is normal in size and enhancement. No adrenal nodules. Kidneys demonstrate normal size and enhancement, without hydronephrosis. Peritoneum and bowel: The previously seen descending colon wall thickening is much improved. Bowel loops otherwise demonstrate normal wall thickness and caliber. No free fluid or air. There is a moderate amount of stool seen within the colon. Nodes and vessels: No retroperitoneal or mesenteric adenopathy by size criteria. Aorta and inferior vena cava are normal in size. Miscellaneous: No ventral hernias. PELVIS: Genitourinary: No bladder wall thickening is seen. There is a pessary seen at the vaginal apex. Uterine fibroids are faintly seen. No adnexal masses are seen. Miscellaneous: No inguinal hernias or adenopathy. Bones: No suspicious bony lesions. No vertebral body compression fractures. Mild dextroconvex scoliotic curvature is seen. Degenerative changes are seen throughout, which are worst at L5-S1. IMPRESSION: There is a moderate amount of stool seen within the colon. Please correlate with an underlying history of constipation. No significant small bowel abnormality is seen. Improved wall thickening seen involving the descending colon. Incidental note is made of: Small to moderate hiatal hernia Vicarious excretion of contrast within the gallbladder Pessary Dextroconvex scoliotic curvature L5-S1 degenerative change Dictated by: Anjel Perkins M.D. on 07/31/2020 at 9:29 Approved by: Anjel Perkins M.D. on 07/31/2020 at 9:38
[2020-07-31] MEDS: KETOROLAC 60 MG/2 ML VIAL 15 MG IV (08:38)
[2020-07-31] MEDS: ONDANSETRON 4 MG/2 ML INJ IV (08:39)
[2020-07-31] MEDS: SODIUM CHLORIDE 0.9% 1,000 ML 1000 ML IV (08:39)
[2020-07-31] MEDS: MAGNESIUM CITRATE 300 ML SOLUTION PO (11:01)
[2020-07-31 11:02] VITALS: BP 111/62; PULSE 77; RESP 18; O2SAT 95
[2020-07-31 11:07] VITALS: BP 122/62; PULSE 71; RESP 15; O2SAT 99
== END 2020-07-31 11:09 | disposition home or self-care (01) ==
PROVIDERS: Emergency Provider Emergency Medicine; PCP Internal Medicine
DX: K52.9 Noninfective gastroenteritis and colitis, unspecified (principal); K59.00 Constipation, unspecified; R79.89 Other specified abnormal findings of blood chemistry; R11.0 Nausea; I48.91 Unspecified atrial fibrillation; E11.9 Type 2 diabetes mellitus without complications; E78.5 Hyperlipidemia, unspecified; Z79.82 Long term (current) use of aspirin
CPT/HCPCS: 36415; 74177; 80053; 81003; 83690; 85025; 85610; 85730; 93005; 96361; 96374; 96375; 99281; 99285; J1885; J2405

== ENCOUNTER → 2020-10-31 11:18 | Outpatient (CLI) | payer MEDICARE, OTHER, SELFPAY ==
--- NOTE | 2020-10-31 11:21 | DI.MG.S_ITS ---
BILATERAL DIGITAL SCREENING MAMMOGRAM 3D/2D WITH CAD: 10/31/2020 CLINICAL: Routine screening. Family history of breast cancer. Comparison is made to exams dated: 10/29/2019 mammogram, 10/17/2018 mammogram, and 10/04/2017 mammogram - [facility]. There are scattered fibroglandular elements in both breasts. Current study was also evaluated with a Computer Aided Detection (CAD) system. There are benign calcifications in both breasts. No significant masses, calcifications, or other findings are seen in either breast. There has been no significant interval change. IMPRESSION: BENIGN There is no mammographic evidence of malignancy. A 1 year screening mammogram is recommended. This exam was interpreted at Station ID: [id number]. NOTE: For mammograms, a report in lay terms will be sent to the patient. Approximately 15% of breast malignancies will not be visualized mammographically. In the management of a palpable breast mass, a negative mammogram must not discourage biopsy of a clinically suspicious lesion. Electronically Signed By: Joe nava/germán:10/31/2020 14:01:00 copy to: Juan Ramon Price letter sent: Normal Exam ACR BI-RADS Category 2: Benign Finding(s) 3342F
== END ==
PROVIDERS: PCP Internal Medicine; Referring Provider Internal Medicine; Visit Provider Internal Medicine
DX: Z12.31 Encounter for screening mammogram for malignant neoplasm of breast (principal); Z80.3 Family history of malignant neoplasm of breast
CPT/HCPCS: 77063; 77067

== ENCOUNTER → 2020-11-07 19:27 | Outpatient (ROUT) | payer MEDICARE, OTHER, SELFPAY ==
[2020-11-07 19:49] LABS: Hemoglobin A1C% w Est Avg Glu 7.2 % (4.0-6.0)
== END ==
PROVIDERS: PCP Internal Medicine; Visit Provider Internal Medicine
DX: E11.9 Type 2 diabetes mellitus without complications (principal)
CPT/HCPCS: 83036

== ENCOUNTER → 2020-12-20 10:59 | Outpatient (CLI) | payer MEDICARE, OTHER, SELFPAY ==
[2020-12-20 13:03] LABS: Thyroid Stimulating Hormone 0.869 uIU/mL (0.47-4.68)
[2020-12-20 13:16] LABS: Free T3, Triiodothyronine Free 2.91 pg/mL (2.77-5.27); Free T4, Direct Thyroxine 1.54 ng/dL (0.78-2.19)
== END ==
PROVIDERS: PCP Internal Medicine; Referring Provider Internal Medicine; Visit Provider Internal Medicine
DX: E03.9 Hypothyroidism, unspecified (principal)
CPT/HCPCS: 84439; 84443; 84481

== ENCOUNTER → 2021-03-20 08:02 | Outpatient (CLI) | payer MEDICARE, OTHER, SELFPAY ==
[2021-03-20 09:36] LABS: Hemoglobin A1C% w Est Avg Glu 7.4 % (4.0-6.0)
[2021-03-20 09:45] LABS: Alanine Aminotransferase 30 IU/L (<35); Albumin 3.8 g/dL (3.5-5.0); Albumin Globulin Ratio 1.5 (1.0-2.8); Alkaline Phosphatase 63 U/L (38-126); Aspartate Aminotransferase 29 IU/L (14-36); BUN Creatinine Ratio 30.9 (6-22); Bilirubin Total 0.4 mg/dL (0.2-1.3); Blood Urea Nitrogen 21 mg/dL (7-17); Calcium 9.7 mg/dL (8.4-10.2); Carbon Dioxide 28 mmol/L (22-32); Chloride 105 mmol/L (98-107); Estimated Glomerular Filt Rate > 60.0 mL/min (>60); Globulin 2.6 g/dL (1.7-4.1); Glucose 124 mg/dL (80-110); HEMOLYSIS < 15 (0-50); Potassium 4.9 mmol/L (3.4-5.1); Sodium 139 mmol/L (137-145); Total Protein 6.4 g/dL (6.3-8.2)
== END ==
PROVIDERS: PCP Internal Medicine; Referring Provider Internal Medicine; Visit Provider Internal Medicine
DX: E11.9 Type 2 diabetes mellitus without complications (principal); E08.8 Diabetes mellitus due to underlying condition with unspecified complications
CPT/HCPCS: 36415; 80053; 83036

== ENCOUNTER → 2021-04-10 08:34 | Outpatient (CLI) | payer MEDICARE, OTHER, SELFPAY ==
[2021-04-10 11:22] LABS: COVID19 -Nasal RAPID Negative (Negative)
== END ==
PROVIDERS: PCP Internal Medicine; Visit Provider Physician Assistant
DX: Z01.812 Encounter for preprocedural laboratory examination (principal); Z20.822 Contact with and (suspected) exposure to COVID-19
CPT/HCPCS: 87635; C9803

== ENCOUNTER 2021-04-12 06:38 | Day surgery (SDC) | payer MEDICARE, OTHER, SELFPAY ==
--- NOTE | 2021-04-10 17:09 | PM.PREOP ---
Pre-operative Note COVID-19 COVID-19 status: Negative Interval Note History & Physical reviewed/Exam performed by Physician: Yes Changes to H&P: No H&P completed within 30 days and has changed as indicated here:: Fasting glucose is 150.
--- NOTE | 2021-04-10 17:11 | P.OP_ITS ---
Operative Date/Time/Diagnoses Date of procedure: 04/12/21 Time of procedure: 08:45 Procedure & Clinicians Procedure: Preoperative diagnoses: 1. Left significant nuclearand sclerotic cataract 2. Astigmatism which is to be corrected with a toric intraocular lens implant. 3. Desire for a multifocal Panoptix toric implant to correct increased range of vision. 4. Diabetes without retinopathy 5. Hypothyroidism 6. Cardiac arrhythmia 7. Hypercholesteremia 8. Osteoarthritis Postoperative diagnoses: 1. Cataract removal with phacoemulsification with toric posterior chamber intraocular lens implant placed. Procedure: Phacoemulsification with posterior chamber toric intraocular lens implant and use of a Panoptix multifocal intra-ocular lens. Surgeon: Anais Cain MD Complications: None Specimen: None Implant: TFAT40+23.5 [place] 180 Blood loss: None Anesthesia: Retrobulbar with monitored standby Description of procedure: Patient presents with a complaint of decreased vision due to cataract which is affecting activities of daily living distance a nd near. The patient wants surgery to improve vision and astigmatism. She understands the extra risk of surgery during the COVID-19 epidemic and wishes to proceed. She has tested COVID-19 virus negative within 72 hours of the procedure. Her fasting glucose this morning is 150. The patient was taken to the operating room and proparacaine drops placed. Indelible ink larsen were placed at the 90 and 180 degree meridian. The patient was placed on the operating room table and given IV sedation. A retrobulbar block insert consisting of 6 cc of 2% xylocaine without epinephrine mixed half and half with 0.5% Marcaine with 1 cc of hyaluronidase added is placed between the medial and lateral 1/3 of the inferior orbital rim. The eye is manually massaged for 30 sec, prepped using Betadine solution, and draped in the usual sterile fashion. She has a very deep set eye with a prominent brow bone. Temporal approach was made, a 1 mm side-port incision was made 90? from the proposed corneal wound. Phenylephrine 1.5% mixed with 1% xylocaine 0.2 cc was placed into the anterior chamber. Viscoat followed by Healon was then placed. A 2.6 mm clear incision with a 2.6 mm blade was placed at the 170 degree meridian. A 360 degree capsulorrhexis style capsulotomy was then performed with a cystitome needle on a Healon. Hydrodelineation and hydrodissection were performed. The phacoemulsification unit is introduced, and sculpting used to groove the central lens. It is then removed in chopping mode. Epi nucleus is removed with epinuclear mode and irrigation aspiration was used to remove the p eripheral cortex. The posterior capsule is polished. The intraocular lens is selected, inspected, power confirmed, and placed in the posterior chamber at the desired meridian of 180?. The pupil was not constricted. The wound was stromally hydrated and tested for leaks, there was none and it was left sutureless. Vigamox 0.1 cc was placed into the anterior chamber. Kenalog 0.2 cc was placed in the superior subconjunctival space. A drop of antibiotic and was placed and the eye was patched and shielded. The patient was stable and returned to the recovery room in excellent condition. Dictated by: Anais Cain MD Copy to: [facility] Same procedure as scheduled: Yes
[2021-04-12] MEDS: PROPARACAINE 0.5% OPHTH SOL 2 DROPS EYE-OP (07:42)
[2021-04-12] MEDS: CATARACT EYE COMPOUND (10 DROPS/SYRINGE) 3 DROPS EYE-OP (07:42)
[2021-04-12 07:51] VITALS: BP 136/81; PULSE 78; RESP 16; TEMP 36.5; O2SAT 100; BMI 25.4
--- NOTE | 2021-04-12 08:01 | SUR.OPER ---
Supine on eye stretcher, head on extension cradle secured with tape. Arms tucked at sides with blanket. Pillow under knees.
[2021-04-12] MEDS: PHENYLEPHRINE/LIDOCAINE VIAL (OR) 0.2 ML EYE-OP (09:13)
[2021-04-12] MEDS: LIDOCAINE 2% 4 ML, BUPIVACAINE 0.5% (PF) 4 ML, HYALURONIDASE 150 UNIT INJ (09:13)
[2021-04-12] MEDS: MOXIFLOXACIN INJ 4 MG/0.8 ML VIAL 0.5 MG EYE-OP (09:14)
[2021-04-12] MEDS: TRIAMCINOLONE 50 MG/5 ML VIAL INJ (09:15)
[2021-04-12] MEDS: BALANCED SALT IRRIG SOLN NO.2 500 ML, EPINEPHrine 1 MG IRR (09:16)
[2021-04-12] MEDS: ERYTHROMYCIN OPHTH 1 GM OINT 1 APPLIC EYE-LEFT (09:17)
[2021-04-12] MEDS: HYALURONATE SODIUM 10 MG/ML SYRINGE INJ (09:34)
[2021-04-12] MEDS: HYALURONATE SODIUM 30 MG-10 MG/ML SYRINGES 1 BOX INTRAOCULA (09:35)
[2021-04-12 09:56] VITALS: BP 106/71; PULSE 68; RESP 16; TEMP 36.7; O2SAT 98
== END 2021-04-12 10:14 | disposition home or self-care (01) ==
LOC: OR 06:43
PROVIDERS: PCP Internal Medicine; Referring Provider Ophthalmology; Visit Provider Ophthalmology
PROC: (CPT 66984; principal; 2021-04-12 08:45)
DX: H25.812 Combined forms of age-related cataract, left eye (principal); H52.202 Unspecified astigmatism, left eye; E11.9 Type 2 diabetes mellitus without complications; E03.9 Hypothyroidism, unspecified; E78.00 Pure hypercholesterolemia, unspecified; I49.9 Cardiac arrhythmia, unspecified; Z79.84 Long term (current) use of oral hypoglycemic drugs
CPT/HCPCS: 66984; 82962; J0171; J2250; J2704; J3010; J3301; J3470; V2788

== ENCOUNTER → 2021-06-12 09:59 | Outpatient (CLI) | payer MEDICARE, OTHER, SELFPAY ==
[2021-06-12 12:13] LABS: COVID19 -Nasal RAPID Negative (Negative)
== END ==
PROVIDERS: PCP Internal Medicine; Visit Provider Physician Assistant
DX: Z01.812 Encounter for preprocedural laboratory examination (principal); Z20.822 Contact with and (suspected) exposure to COVID-19
CPT/HCPCS: 87635; C9803

== ENCOUNTER 2021-06-14 07:08 | Day surgery (SDC) | payer MEDICARE, OTHER, SELFPAY ==
--- NOTE | 2021-06-13 19:17 | PM.PREOP ---
Pre-operative Note COVID-19 COVID-19 status: Negative Interval Note History & Physical reviewed/Exam performed by Physician: Yes Changes to H&P: No H&P completed within 30 days and has changed as indicated here:: Fasting glucose is 108 today.
--- NOTE | 2021-06-13 19:18 | P.OP_ITS ---
Operative Date/Time/Diagnoses Date of procedure: 06/14/21 Time of procedure: 08:45 Procedure & Clinicians Procedure: Preoperative diagnoses: 1. Right sigificant nuclear sclerotic and cortical cataract. 2. Astigmatism which she elects to correct with a toric multifocal intra-ocular lens. 3. Diabetes without retinopathy 4. Cardiac arrhythmia Postoperative diagnoses: 1. Cataract removed by phacoemulsification with placement of toric multifocal Panoptix posterior chamber intraocular lens. Procedure: Phacoemulsification with posterior chamber intraocular lens implant Surgeon: Anais Cain MD Complications: None Specimen: None Implant: TFAT40+23.5 axis 180? Blood loss: None Anesthesia: Retrobulbar with monitored standby Description of procedure: Patient presents with a complaint of decreased vision due to cataract which is affecting activities of daily living for driving and reading. She also has significant astigmatism and desires a multifocal Panoptix lens to try to make her less glasses dependent. She has had successful left cataract surgery with a similar implant. The patient wants surgery to improve vision. She has stable diabetes. She understands the extra risk of surgery during the COVID-19 epidemic and wishes to proceed. She has tested negative for active COVID-19 virus within 72 hours of the procedure. The patient was taken to the operating room and indelible ink larsen were placed in the 90 and 180 degree meridian. She is then given IV sedation. A retrobulbar block consisting of 6 cc of 2% xylocaine without epinephrine mixed half and half with 0.5% Marcaine with 1 cc of hyaluronidase added is placed be tween the medial and lateral 1/3 of the inferior orbital rim. The eye is manually massaged for 30 sec, prepped using Betadine solution, and draped in the usual sterile fashion. Temporal approach was made, a 1 mm side-port incision was made 90? from the proposed clear corneal incision position. Very prominent brow. 1.5% mixed with 1% xylocaine 0.2 cc was placed into the anterior chamber. Enddocoat followed by Will was then placed. A 2.6 mm clear incision with a 2.6 mm blade was placed. A 360 degree capsulorrhexis style capsulotomy was then performed with a cystitome needle on a Healon. Hydrodelineation and hydrodissection were performed. The phacoemulsification unit is introduced, and sculpting notice used to groove the central lens. It is then removed in chopping mode. Epi nucleus is removed with epinuclear mode and irrigation aspiration was used to remove the peripheral cortex. The posterior capsule is polished. The intraocular lens is selected, inspected, power confirmed, and placed in the posterior chamber. The initial lens did not advance easily through the wood heel flap inserter into the wound and therefore it was rejected and replaced with another lens. It was the new lens was placed in the posterior chamber and centered at the 180 degree meridian The wound was stromally hydrated and tested for leaks, there was none and it was left sutureless. Vigamox 0.1 cc was placed into the anterior chamber. Kenalog 0.2 cc was placed in the superior subconjunctival space. A drop of antibiotic and was placed and the eye was patched and shielded. The patient was stable and returned to the recovery room in excellent condition. Dictated by: Anais Cain MD Copy to: [facility] Same procedure as scheduled: Yes
[2021-06-14 07:27] VITALS: BMI 25.7
[2021-06-14] MEDS: CATARACT EYE COMPOUND (10 DROPS/SYRINGE) 3 DROPS EYE-OP (07:38)
--- NOTE | 2021-06-14 07:53 | SUR.PREOP ---
poct glucose 108
[2021-06-14] MEDS: LIDOCAINE 2% 4 ML, BUPIVACAINE 0.5% (PF) 4 ML, HYALURONIDASE 150 UNIT INJ (08:50)
[2021-06-14] MEDS: PHENYLEPHRINE/LIDOCAINE VIAL (OR) 0.2 ML EYE-OP (09:02)
[2021-06-14] MEDS: HYALURONATE SODIUM 30 MG-10 MG/ML SYRINGES 1 BOX INTRAOCULA (09:02)
[2021-06-14] MEDS: ERYTHROMYCIN OPHTH 1 GM OINT 1 APPLIC EYE-RIGHT (09:02)
[2021-06-14] MEDS: MOXIFLOXACIN INJ 4 MG/0.8 ML VIAL 0.5 MG EYE-OP (09:02)
[2021-06-14] MEDS: PROPARACAINE 0.5% OPHTH SOL 2 DROPS EYE-OP (09:03)
[2021-06-14] MEDS: TRIAMCINOLONE 50 MG/5 ML VIAL INJ (09:04)
[2021-06-14] MEDS: BALANCED SALT IRRIG SOLN NO.2 500 ML, EPINEPHrine 1 MG IRR (09:05)
[2021-06-14 10:01] VITALS: BP 123/82; PULSE 66; RESP 14; TEMP 36.4; O2SAT 99
== END 2021-06-14 10:19 | disposition home or self-care (01) ==
LOC: OR 07:11
PROVIDERS: PCP Internal Medicine; Referring Provider Ophthalmology; Visit Provider Ophthalmology
PROC: (CPT 66984; principal; 2021-06-14 08:45)
DX: H25.811 Combined forms of age-related cataract, right eye (principal); H52.201 Unspecified astigmatism, right eye; E11.9 Type 2 diabetes mellitus without complications; I49.9 Cardiac arrhythmia, unspecified; Z79.84 Long term (current) use of oral hypoglycemic drugs; E78.00 Pure hypercholesterolemia, unspecified; E03.9 Hypothyroidism, unspecified; I48.91 Unspecified atrial fibrillation
CPT/HCPCS: 66984; J0171; J2704; J3301; J3470; V2788

== ENCOUNTER 2021-10-17 08:09 | Emergency (ER) | payer MEDICARE, OTHER, SELFPAY ==
[2021-10-17 08:28] VITALS: BP 128/69; PULSE 68; RESP 16; TEMP 36.2; O2SAT 99; BMI 25.9
--- NOTE | 2021-10-17 08:34 | DI.RAD.S_ITS ---
PROCEDURE: XR FINGER LT MIN 2V INDICATIONS: crush TECHNIQUE: AP hand, 2 views of the 4th finger(s) acquired. COMPARISON: None. FINDINGS: Bones: There is an intra-articular fracture seen involving the proximal base of the distal phalanx of the 4th finger. No additional fractures are detected. Age-appropriate bony degenerative changes are seen. No suspicious lytic or blastic lesions are seen. Note is made of negative ulnar variance. This can predispose to development of AVN of the lunate. However, no findings of AVN of the lunate are seen on these plain films. Soft tissues: No suspicious soft tissue calcifications. IMPRESSION: 4th finger fracture. Dictated by: Anjel Perkins M.D. on 10/17/2021 at 7:56 Approved by: Anjel Perkins M.D. on 10/17/2021 at 8:04
--- NOTE | 2021-10-17 09:13 | ED_ITS ---
HPI - General Adult General Chief complaint: Extremity Injury, Upper Stated complaint: Possible broken ring finger Time Seen by Provider: 10/17/21 09:03 Source: patient and family Mode of arrival: Ambulatory History of Present Illness HPI narrative: Patient is a 71-year-old female. States she was at the eye doctor this morning. Had her eyes dilated. Had a very early appointment so afterwards she was going to get some breakfast and as she was leaving the restaurant had a door slam on her left ring finger. Has had pain in the area since then. No prior injuries. No intervention prior to arrival. Related Data Home Medications Medication Instructions Recorded Confirmed WHEAT DEXTRIN (#BENEFIBER) 2 tsp PO BID #0 03/25/12 07/28/20 aspirin 81 mg tablet,delayed 162 mg PO DAILY #0 03/25/12 06/14/21 release metoprolol succinate 50 mg 50 mg PO DAILY #0 03/25/12 06/14/21 tablet,extended release 24 hr (Toprol XL) simvastatin 20 mg tablet 20 mg PO BEDTIME #0 03/25/12 06/14/21 spironolactone 25 mg tablet 12.5 mg PO DAILY #0 03/25/12 06/14/21 trospium 60 mg capsule,extended 60 mg PO QAM #0 03/25/12 06/14/21 release 24 hr canagliflozin 100 mg tablet 100 mg PO DAILY 09/07/19 06/14/21 (Invokana) digoxin 125 mcg (0.125 mg) tablet 125 mcg PO DAILY 09/07/19 06/14/21 levothyroxine 100 mcg tablet 100 mcg PO DAILY 09/07/19 06/14/21 (Synthroid) metformin 1,000 mg tablet 1,000 mg PO BID 09/07/19 06/14/21 polyethylene glycol 3350 17 gram 17 gram PO DAILY 10/29/19 06/14/21 oral powder packet (Miralax) tazarotene 0.1 % topical cream 1 applictn TOP DAILY 10/29/19 06/14/21 (Tazorac) Previous Rx's Medication Instructions Recorded nitrofurantoin macrocrystal 50 mg 50 mg PO BEDTIME #90 cap 08/04/18 capsule CMP BIEST1%/PROG7.5%/TEST1% See Rx Instructions .ROUTE 09/24/19 .COMPLEX #60 gram estradiol (Estring) See Rx Instructions .ROUTE 05/03/20 .COMPLEX #1 unspecified docusate sodium 100 mg capsule 100 mg PO BID PRN #20 cap 07/31/20 (Colace) Allergies Allergy/AdvReac Type Severity Reaction Status Date / Time No Known Drug Allergies Allergy Verified 06/14/21 07:47 Review of Systems Constitutional Constitutional: Reports system reviewed and no additional complaints, except as documented Musculoskeletal Musculoskeletal: Reports system reviewed and no additional complaints, except as documented Integumentary/Breasts Skin/Breast: Reports system reviewed and no additional complaints, except as documented Hematologic/Lymphatic On Anticoagulants: No Patient History Medical History (Updated 10/17/21 @ 09:35 by Gutierrez Parnell DO) Atrial fibrillation Diabetes mellitus Fibula fracture Hyperlipidemia Social History household members: spouse Smoking Status: Never smoker Smoking Status: Never smoker alcohol intake frequency: holidays/special occasions only Substance Use Type: does not use Exam Initial Vital Signs Initial Vital Signs: Vital Signs Temperature 97.1 F L 10/17/21 08:28 Pulse Rate 68 10/17/21 08:28 Respiratory Rate 16 10/17/21 08:28 Blood Pressure 128/69 10/17/21 08:28 Pulse Oximetry 99 10/17/21 08:28 HENMT Head: normal to inspection and normocephalic Skin General: no rashes or lesions noted Neuro Sensory Exam: no sensory deficits noted Extrem Other: Patient has a flexion at the D IP joint of the left ring finger. Her PIP joint and MCP joint of the finger unremarkable. She has no subungual hematoma noted. Procedures Orthopedic Splinting/Casting Injury #1: Side: left Upper Extremity Injury Location: finger Upper Extremity Immobilizer: aluminum form splint Post splinting neuro exam: intact Post splinting vascular exam: intact Placed by: Provider Course Orders Ordered: ED Orders 10/17/21 08:34 XR finger LT min 2V Stat Vital Signs Vital signs: Vital Signs - 8 hr 10/17/21 08:28 Temperature 97.1 F L Pulse Rate 68 Respiratory Rate 16 Blood Pressure 128/69 Pulse Oximetry 99 Medical Decision Making Imaging Data Extremity x-ray #1: Radiologist's Impression: [address] [address] XRay Report Signed Patient: Kiera Welch MR#: [id number] : 1950 Acct:[id number] Age/Sex: 71 / F Date of Service: 10/17/21 Loc: ED Accession Number: [id number] ?? Procedure: XR finger LT min 2V Ordering Provider: Gutierrez Parnell D.O. PROCEDURE:? XR FINGER LT MIN 2V ? INDICATIONS:? crush ? TECHNIQUE:? AP hand, 2 views of the 4th finger(s) acquired.? ? COMPARISON:? None. ? FINDINGS:? ? Bones:? There is an intra-articular fracture seen involving the proximal base of the distal phalanx of the 4th finger. ? No additional fractures are detected.? Age-appropriate bony degenerative changes are seen. No suspicious lytic or blastic lesions are seen. Note is made of negative ulnar variance.? This can predispose to development of AVN of the lunate.? However, no findings of AVN of the lunate are seen on these plain films.? ? Soft tissues:? No suspicious soft tissue calcifications.? ? ? IMPRESSION:? 4th finger fracture. ? ? Dictated by: Anjel Perkins M.D. on 10/17/2021 at 7:56 ? ? Approved by: Anjel Perkins M.D. on 10/17/2021 at 8:04?? [facility] Narrative Medical decision making narrative: Does have a fracture of the distal phalanx of the left 4th finger. Given her presentation that is consistent with a mallet finger I do have concern for an avulsion injury. She was placed in a splint that put her DI P in extension. I did discuss the injury with her and the importance of keeping it in extension. She was given follow-up with Orthopedics. She was given return precautions. She expressed understanding and agreement. Discharge Plan Departure Patient Disposition: Home Clinical Impression: Closed fracture of phalanx of left ring finger Instructions: DI for Finger Fracture Activity Restrictions/Additional Instructions: I do recommend that you keep the splint on and keep it clean and keep it dry. It is important that the end of your finger maintain in a extension position. You can contact the orthopedic providers at the number provided below. Return to the emergency department for any new or worsening symptoms. Prescriptions: No Action aspirin 81 mg Tablet,Delayed Release (Dr/Ec) 162 mg PO DAILY Qty: 0 0RF trospium 60 mg Capsule,Extended Release 24hr 60 mg PO QAM Qty: 0 0RF spironolactone 25 MG tablet 12.5 mg PO DAILY Qty: 0 0RF simvastatin 20 MG tablet 20 mg PO BEDTIME Qty: 0 0RF metoprolol succinate [Toprol XL] 50 MG tablet extended release 24 hr 50 mg PO DAILY Qty: 0 0RF WHEAT DEXTRIN (#BENEFIBER) 2 tsp PO BID Qty: 0 0RF CMP BIEST1%/PROG7.5%/TEST1% See Rx Instructions .ROUTE .COMPLEX Qty: 60 3RF Dose Instruction: 2 pumps daily behind knees ; Rx Instructions: Apply 2 Pumps (1Gm) topically once daily to rotating sites/behind knees. *blue 0.5gm pump* Estring 2 mg (7.5 mcg /24 hour) ring See Rx Instructions .ROUTE .COMPLEX Qty: 1 3RF Dose Instruction: INSERT 1 RING VAGINALLY ONCE EVERY 3 MONTHS Rx Instructions: INSERT 1 RING VAGINALLY ONCE EVERY 3 MONTHS nitrofurantoin macrocrystal 50 mg capsule 50 mg PO BEDTIME Qty: 90 0RF Rx Instructions: must administer with a meal/food polyethylene glycol 3350 [Miralax] 17 gram powder in packet 17 gram PO DAILY 0RF tazarotene [Tazorac] 0.1 % cream 1 applictn TOP DAILY 0RF levothyroxine [Synthroid] 100 mcg tablet 100 mcg PO DAILY 0RF metformin 1,000 mg tablet 1,000 mg PO BID 0RF digoxin 125 mcg (0.125 mg) tablet 125 mcg PO DAILY 0RF Invokana 100 mg tablet 100 mg PO DAILY 0RF docusate sodium [Colace] 100 mg capsule 100 mg PO BID PRN (Reason: constipation) Qty: 20 0RF Referrals: Juan Ramon Mosley MD [Primary Care Provider] - Olivier Durand MD [Physician] -
[2021-10-17 09:44] VITALS: BP 106/60; PULSE 71; RESP 16; O2SAT 99
== END 2021-10-17 09:44 | disposition home or self-care (01) ==
PROVIDERS: Emergency Provider Emergency Medicine; PCP Internal Medicine
DX: S62.615A Displaced fracture of proximal phalanx of left ring finger, initial encounter for closed fracture (principal); W23.0XXA Caught, crushed, jammed, or pinched between moving objects, initial encounter
CPT/HCPCS: 73140; 99283

== ENCOUNTER → 2021-11-14 11:29 | Outpatient (CLI) | payer MEDICARE, OTHER, SELFPAY ==
--- NOTE | 2021-11-14 | DI.MG.S_ITS ---
BILATERAL DIGITAL SCREENING MAMMOGRAM 3D/2D WITH CAD: 11/14/2021 CLINICAL: Routine screening. Family history of breast cancer. Comparison is made to exams dated: 10/31/2020 mammogram, 10/29/2019 mammogram, and 10/17/2018 mammogram - [facility]. There are scattered fibroglandular elements in both breasts. Current study was also evaluated with a Computer Aided Detection (CAD) system. No significant masses, calcifications, or other findings are seen in either breast. There has been no significant interval change. IMPRESSION: NEGATIVE There is no mammographic evidence of malignancy. A 1 year screening mammogram is recommended. This exam was interpreted at Station ID: [id number]. NOTE: For mammograms, a report in lay terms will be sent to the patient. Approximately 15% of breast malignancies will not be visualized mammographically. In the management of a palpable breast mass, a negative mammogram must not discourage biopsy of a clinically suspicious lesion. Electronically Signed By: Yumi goodwin/germán:11/14/2021 14:28:13 copy to: Juan Ramon Price letter sent: Normal Exam ACR BI-RADS Category 1: Negative [id number]
== END ==
PROVIDERS: PCP Internal Medicine; Referring Provider Internal Medicine; Visit Provider Internal Medicine
DX: Z12.31 Encounter for screening mammogram for malignant neoplasm of breast (principal); Z80.3 Family history of malignant neoplasm of breast
CPT/HCPCS: 77063; 77067

== ENCOUNTER 2024-08-12 20:22 | Emergency (ER) | payer MEDICARE, OTHER, SELFPAY ==
--- NOTE | 2024-08-12 20:58 | ED.GENADULT ---
HPI - General Adult General Chief complaint: Recheck/Abnormal Lab/Rx Stated complaint: needs port deactivated Time Seen by Provider: 08/12/24 20:58 History of Present Illness HPI narrative: 72yoF with PMH metastatic ovarian cancer presents requesting her port be de-accessed. Was at [facility] today for chemo, but the port was never de-accessed and she didn't realize it until she was home today. Denies other complaints. Today is her 53rd anniversary with her . Related Data Home Medications Medication Instructions Recorded Confirmed WHEAT DEXTRIN (#BENEFIBER) 2 tsp PO BID ##0 03/25/12 07/28/20 aspirin 81 mg tablet,delayed 162 mg PO DAILY ##0 03/25/12 06/14/21 release metoprolol succinate 50 mg 50 mg PO DAILY ##0 03/25/12 06/14/21 tablet,extended release 24 hr (Toprol XL) simvastatin 20 mg tablet 20 mg PO BEDTIME ##0 03/25/12 06/14/21 spironolactone 25 mg tablet 12.5 mg PO DAILY ##0 03/25/12 06/14/21 trospium 60 mg capsule,extended 60 mg PO QAM ##0 03/25/12 06/14/21 release 24 hr canagliflozin 100 mg tablet 100 mg PO DAILY 09/07/19 06/14/21 (Invokana) digoxin 125 mcg (0.125 mg) tablet 125 mcg PO DAILY 09/07/19 06/14/21 levothyroxine 100 mcg tablet 100 mcg PO DAILY 09/07/19 06/14/21 (Synthroid) metformin 1,000 mg tablet 1,000 mg PO BID 09/07/19 06/14/21 polyethylene glycol 3350 17 gram 17 gram PO DAILY 10/29/19 06/14/21 oral powder packet (Miralax) tazarotene 0.1 % topical cream 1 applictn topical DAILY 10/29/19 06/14/21 (Tazorac) Previous Rx's Medication Instructions Recorded nitrofurantoin macrocrystal 50 mg 50 mg PO BEDTIME #90 caps 08/04/18 capsule CMP BIEST1%/PROG7.5%/TEST1% See Rx Instructions .Route 09/24/19 .COMPLEX HRT #60 grams estradiol 2 mg (7.5 mcg/24 hour) See Rx Instructions .Route 05/03/20 vaginal ring (Estring) .COMPLEX ##1 docusate sodium 100 mg capsule 100 mg PO BID PRN constipation #20 07/31/20 (Colace) caps Allergies Allergy/AdvReac Type Severity Reaction Status Date / Time No Known Drug Allergies Allergy Verified 06/14/21 07:47 Patient History Medical History Fibula fracture Diabetes mellitus Hyperlipidemia Atrial fibrillation Social History household members: spouse Smoking Status: Never smoker Smoking Status: Never smoker alcohol intake frequency: holidays/special occasions only Exam Initial Vital Signs Initial Vital Signs: Vital Signs Temperature 97.3 F L 08/12/24 21:02 Pulse Rate 72 08/12/24 21:02 Respiratory Rate 16 08/12/24 21:02 Blood Pressure 149/81 H 08/12/24 21:02 Pulse Oximetry 98 08/12/24 21:02 Oxygen Delivery Method Room Air 08/12/24 21:02 Const: Awake, alert, no acute distress, nontoxic appearing Chest: port in place with access needle present. Clean dressing over port site Skin: Warm, Dry, intact, no rashes Neuro: AO x3, CN II-XII grossly intact, moves all extremities Course Orders Ordered: Discontinued Medications Heparin Sodium (Porcine) (Heparin 500 Unit/5 Ml Port Flush) 500 unit IV PRN PRN PRN Reason: Flush Last Admin: 08/12/24 21:06 Dose: 500 unit Documented By: AB Vital Signs Vital signs: Vital Signs - 8 hr 08/12/24 21:02 Temperature 97.3 F L Pulse Rate 72 Respiratory Rate 16 Blood Pressure 149/81 H Pulse Oximetry 98 Oxygen Delivery Method Room Air Medical Decision Making MDM Narrative Medical decision making narrative: Patient requesting port BD accessed since it was not the accessed after chemotherapy appointment. Denies other complaints. Port the access by nursing staff and patient is sent home Discharge Plan Departure Patient Disposition: Home Clinical Impression: Encounter for deaccessing implanted intravenous port Prescriptions: No Action aspirin 81 mg Tablet,Delayed Release (Dr/Ec) 162 mg PO DAILY Qty: 0 trospium 60 mg Capsule,Extended Release 24hr 60 mg PO QAM Qty: 0 spironolactone 25 MG tablet 12.5 mg PO DAILY Qty: 0 simvastatin 20 MG tablet 20 mg PO BEDTIME Qty: 0 metoprolol succinate [Toprol XL] 50 MG tablet extended release 24 hr 50 mg PO DAILY Qty: 0 WHEAT DEXTRIN (#BENEFIBER) 2 tsp PO BID Qty: 0 CMP BIEST1%/PROG7.5%/TEST1% See Rx Instructions .ROUTE .COMPLEX Qty: 60 3RF Dose Instruction: 2 pumps daily behind knees ; Rx Instructions: Apply 2 Pumps (1Gm) topically once daily to rotating sites/behind knees. *blue 0.5gm pump* Estring 2 mg (7.5 mcg /24 hour) ring See Rx Instructions .ROUTE .COMPLEX Qty: 1 3RF Dose Instruction: INSERT 1 RING VAGINALLY ONCE EVERY 3 MONTHS Rx Instructions: INSERT 1 RING VAGINALLY ONCE EVERY 3 MONTHS nitrofurantoin macrocrystal 50 mg capsule 50 mg PO BEDTIME Qty: 90 0RF Rx Instructions: must administer with a meal/food polyethylene glycol 3350 [Miralax] 17 gram powder in packet 17 gram PO DAILY tazarotene [Tazorac] 0.1 % cream 1 applictn TOP DAILY levothyroxine [Synthroid] 100 mcg tablet 100 mcg PO DAILY metformin 1,000 mg tablet 1,000 mg PO BID digoxin 125 mcg (0.125 mg) tablet 125 mcg PO DAILY Invokana 100 mg tablet 100 mg PO DAILY docusate sodium [Colace] 100 mg capsule 100 mg PO BID PRN (Reason: constipation) Qty: 20 0RF Referrals: Juan Ramon Mosley MD [Primary Care Provider] - Stand Alone Forms: Patient Portal/API/Survey
[2024-08-12 21:02] VITALS: BP 149/81; PULSE 72; RESP 16; TEMP 36.3; O2SAT 98
== END 2024-08-12 21:08 | disposition home or self-care (01) ==
PROVIDERS: Emergency Provider Emergency Medicine; PCP Internal Medicine
DX: Z45.2 Encounter for adjustment and management of vascular access device (principal)
CPT/HCPCS: 99282; 99283; J1642

== ENCOUNTER → 2024-09-29 15:16 | Outpatient (CLI) | payer MEDICARE, OTHER, SELFPAY ==
[2024-09-29 16:05] LABS: Appearance Urine UA CLEAR; Bilirubin Urine UA NEGATIVE (NEGATIVE); Color Urine UA YELLOW; Glucose Urine UA NEGATIVE (Negative); Ketones Urine UA NEGATIVE (NEGATIVE); Leukocyte Esterase Urine UA 3+ (NEGATIVE); Nitrite Urine UA NEGATIVE (Negative); Occult Blood Urine UA 2+ (Negative); Protein Urine UA TRACE (Negative); Specific Gravity Urine UA <=1.005 (1.000-1.035); Urobilinogen Urine UA 0.2 E.U./dL (0.2)
[2024-09-29 16:06] LABS: pH Urine UA 6.5 (4.5-8.0)
[2024-09-29 16:32] LABS: Bacteria Urine Many (>30); Culture Indicated Urine Specimen Cultured; RBC Urine 1-5/HPF (0-5/HPF); Squamous Epithelial Cell Urine 5-10 /HPF (0-5/HPF); Urine Volume 10mL (spun); WBC Urine 5-10/HPF (0-5/HPF)
== END ==
LOC: LAB 15:18
PROVIDERS: PCP Internal Medicine; Referring Provider Internal Medicine Infectious Disease; Visit Provider Internal Medicine Infectious Disease
DX: N39.0 Urinary tract infection, site not specified (principal)
CPT/HCPCS: 81001; 87086